=== PATIENT | female | born 1945 | race Caucasian/White ===

== ENCOUNTER → 2019-03-18 12:11 | Outpatient (CLI) | payer MEDICARE, SELFPAY ==
--- NOTE | 2019-03-18 | DI.CT.S_ITS ---
PROCEDURE: CT SINUS SCREEN WO CON INDICATIONS: SINUS HEADACHES TECHNIQUE: Noncontrast 3.0 mm axial images acquired from the frontal sinuses to the mid-sella, with coronal and sagittal reformats. For radiation dose reduction, the following was used: automated exposure control, adjustment of mA and/or kV according to patient size. COMPARISON: [facility], CT, HEAD WITHOUT CONTRAST, 08/04/2016, 8:24. [facility], CT, HEAD AND NECK ANGIO, 08/04/2016, 9:36. FINDINGS: Image quality: Excellent. Maxillary Sinuses: No bony remodeling or destruction. Mucous retention cyst in the left maxillary sinus. Ethmoid Air Cells: No bony remodeling or destruction. Partial opacification of posterior left ethmoid air cells. Sphenoid Sinuses: No bony remodeling or destruction. The left sphenoid sinus is opacified. There is mucosal thickening in the right sphenoid sinus. Frontal Sinuses: No bony remodeling or destruction. Sinuses are clear. Ostiomeatal Complexes: Ostiomeatal complexes are patent. No Myrna cells. Miscellaneous: Visualized intra-orbital contents are normal. No elizabeth bullosa or paradoxical turbinate curvature. No nasal septal deviation. There is carotid artery calcification consistent with atherosclerosis. IMPRESSION: 1. Bilateral sphenoid and left ethmoid and maxillary sinusitis. Dictated by: Sharda Duffy M.D. on 03/18/2019 at 12:51 Approved by: Sharda Duffy M.D. on 03/18/2019 at 12:58
== END ==
PROVIDERS: PCP Internal Medicine; Visit Provider Internal Medicine
DX: J32.8 Other chronic sinusitis (principal); R51 Headache
CPT/HCPCS: 70486

== ENCOUNTER → 2019-09-16 09:47 | Outpatient (CLI) | payer MEDICARE, SELFPAY ==
--- NOTE | 2019-09-16 | DI.US.S_ITS ---
PROCEDURE: US CAROTID DOPPLER BI INDICATIONS: CAROTID ATHEROSCLEROSIS FOUND ON CT TECHNIQUE: Color and pulse Doppler interrogation was performed of both carotid systems, with image documentation and velocity measurements. COMPARISON: None. FINDINGS: Stenosis calculations are based on SRU (Society of Radiologists in Ultrasound) criteria. Right side: Brachial blood pressure: 112/64 mm Hg. Common carotid artery peak systolic velocity: 58 cm/sec. Internal carotid artery peak systolic velocity: 90 cm/sec. Internal carotid artery end diastolic velocity: 31 cm/sec. External carotid artery peak systolic velocity: 95 cm/sec. ICA/CCA peak systolic ratio: 1.6. Servin scale imaging description: Soft plaques at the bifurcation Percent internal carotid artery stenosis: Less than 50%. Vertebral artery: Flow direction is antegrade. Left side: Brachial blood pressure: 103/65 mm Hg. Common carotid artery peak systolic velocity: 76 cm/sec. Internal carotid artery peak systolic velocity: 61 cm/sec. Internal carotid artery end diastolic velocity: 20 cm/sec. External carotid artery peak systolic velocity: 141 cm/sec. ICA/CCA peak systolic ratio: 0.8. Servin scale imaging description: Calcified plaques at the bifurcation Percent internal carotid artery stenosis: Less than 50%. Vertebral artery: Flow direction is antegrade. IMPRESSION: 1. Less than 50% internal carotid artery stenosis bilaterally. 2. Antegrade vertebral artery flow bilaterally. Dictated by: Sharda Duffy M.D. on 09/16/2019 at 12:13 Approved by: Sharda Duffy M.D. on 09/16/2019 at 12:15
== END ==
PROVIDERS: PCP Internal Medicine; Visit Provider Internal Medicine
DX: I65.23 Occlusion and stenosis of bilateral carotid arteries (principal)
CPT/HCPCS: 93880

== ENCOUNTER → 2020-04-15 09:08 | Outpatient (CLI) | payer MEDICARE, SELFPAY ==
[2020-04-15 10:07] LABS: Add Manual Diff / Slide Review NO; Basophils Absolute Auto 0 /uL (0-100); Basophils Percent Auto 0.7 % (0-2); Eosinophils Absolute Auto 200 /uL (0-450); Hematocrit 42.4 % (36-46); Hemoglobin 14.4 g/dL (12.0-16.0); Lymphocytes Absolute Auto 700 /uL (1100-4500); Lymphocytes Percent Auto 17.1 % (25-40); Mean Corpuscular HGB Conc 33.9 % (30-36); Mean Corpuscular Hemoglobin 28.9 PG (26-34); Mean Corpuscular Volume 85.3 fL (80-100); Monocytes Absolute Auto 500 /uL (0-900); Monocytes Percent Auto 11.8 % (3-14); Neutrophils Absolute Auto 2800 /uL (1500-7000); Neutrophils Percent Auto 66.4 % (50-75); Platelet Count 247 X10^3/uL (150-400); Red Blood Cell Count 4.97 X10^6/uL (4.0-5.2); Red Cell Distribution Width 14.4 % (11.6-14.8); White Blood Cell Count 4.1 X10^3/uL (4.5-11.0)
[2020-04-15 10:36] LABS: Alanine Aminotransferase 15 IU/L (<35); Albumin 3.9 g/dL (3.5-5.0); Albumin Globulin Ratio 1.3 (1.0-2.8); Alkaline Phosphatase 108 U/L (38-126); Aspartate Aminotransferase 29 IU/L (14-36); Blood Urea Nitrogen 17 mg/dL (7-17); Calcium 9.2 mg/dL (8.4-10.2); Carbon Dioxide 35 mmol/L (22-32); Chloride 100 mmol/L (98-107); Cholesterol 176 mg/dL (140-199); Estimated Glomerular Filt Rate > 60.0 mL/min (>60); Globulin 2.9 g/dL (1.7-4.1); Glucose 94 mg/dL (80-110); HDL Cholesterol 56 mg/dL (40-60); HEMOLYSIS < 15 (0-50); LDL Cholesterol Calculated 102 mg/dL (<100); Sodium 140 mmol/L (137-145); Total Protein 6.8 g/dL (6.3-8.2); Triglycerides 88 mg/dL (35-150)
[2020-04-15 10:37] LABS: Potassium 3.6 mmol/L (3.4-5.1)
[2020-04-15 11:09] LABS: Thyroid Stimulating Hormone 2.12 uIU/mL (0.47-4.68)
== END ==
PROVIDERS: PCP Internal Medicine; Referring Provider Internal Medicine; Visit Provider Internal Medicine
DX: I10 Essential (primary) hypertension (principal); E03.9 Hypothyroidism, unspecified; E78.5 Hyperlipidemia, unspecified
CPT/HCPCS: 36415; 80053; 80061; 84443; 85025

== ENCOUNTER → 2021-01-11 11:41 | Outpatient (CLI) | payer MEDICARE, SELFPAY | PROVIDERS: PCP Internal Medicine; Referring Provider Internal Medicine; Visit Provider Internal Medicine | DX: Z12.31 Encounter for screening mammogram for malignant neoplasm of breast (principal); Z53.9 Procedure and treatment not carried out, unspecified reason ==

== ENCOUNTER → 2021-06-01 08:29 | Outpatient (CLI) | payer MEDICARE, SELFPAY ==
--- NOTE | 2021-06-01 08:30 | DI.US.S_ITS ---
LIMITED ULTRASOUND OF LEFT BREAST: 06/01/2021 CLINICAL: Palpable left breast lump. Comparison is made to exams dated: 06/01/2021 mammogram, 03/02/2018 mammogram, 10/30/2012 mammogram, and 03/03/2010 mammogram - [facility]. Real-time ultrasound of the left breast was performed. Servin scale images of the real-time examination were reviewed. Dense fibroglandular tissue but no mass is identifed in the patient-indicated palpable area of concern. IMPRESSION: NEGATIVE Dense fibroglandular tissue but no mass is identifed in the patient-indicated palpable area of concern. Recommend clinical follow up. There is no sonographic evidence of malignancy. A 1 year screening mammogram is recommended. This exam was interpreted at Station ID: [id number]. Electronically Signed By: Devin akhtar:06/01/2021 10:37:27 letter sent: Clinical Evaluation Ultrasound BI-RADS: 1 Negative
--- NOTE | 2021-06-01 08:30 | DI.MG.S_ITS ---
BILATERAL DIGITAL DIAGNOSTIC MAMMOGRAM 3D/2D: 06/01/2021 CLINICAL: Left breast mass. Comparison is made to exams dated: 03/02/2018 mammogram, 10/30/2012 mammogram, and 03/03/2010 mammogram - [facility]. The tissue of both breasts is extremely dense, which lowers the sensitivity of mammography. No significant masses, calcifications, or other findings are seen in either breast. IMPRESSION: INCOMPLETE: NEEDS ADDITIONAL IMAGING EVALUATION There is no abnormality seen in the left breast to correspond with the palpable abnormality in the upper outer quadrant. Targeted ultrasound is recommended for further evaluation, which will be scheduled immediately following this exam. This exam was interpreted at Station ID: [id number]. NOTE: For mammograms, a report in lay terms will be sent to the patient. Approximately 15% of breast malignancies will not be visualized mammographically. In the management of a palpable breast mass, a negative mammogram must not discourage biopsy of a clinically suspicious lesion. Electronically Signed By: Devin [email or web address]/[email or web address]:06/01/2021 10:32:25 ACR BI-RADS Category 0: Incomplete [id number]
== END ==
PROVIDERS: PCP Internal Medicine; Referring Provider Internal Medicine; Visit Provider Internal Medicine
DX: N63.21 Unspecified lump in the left breast, upper outer quadrant (principal); R92.2 Inconclusive mammogram
CPT/HCPCS: 76642; 77066; G0279

== ENCOUNTER 2021-07-15 12:00 | Outpatient (RCR) | payer MEDICARE, SELFPAY ==
--- NOTE | 2021-06-01 15:15 | PT.OPPOC ---
Physical, Occupational & Speech Therapy At [facility] Current Diagnoses Stiffness of other specified joint, not elsewhere classified (06/01/21) Low back pain (06/01/21) Pain in thoracic spine (06/01/21) Muscle spasm of back (06/01/21) Abnormal posture (06/01/21) Visit Care Team Role Provider Type RO Cleaning Attending Provider Advanced Centerless Grinder Operator Primary Care Provider Referring Provider Specialty: [facility] Address: [address] [place] [address], [facility] Email: Plan Of Care PT-OP-T Assessment and Plan Start: 06/01/21 15:09 Freq: Status: Active Protocol: Document 06/01/21 14:30 DCW (Rec: 06/02/21 09:38 DCW [id number]) Physical Therapy Assessment Rehab Potential Rehabilitation Potential Good Evaluation Complexity Number of Personal Factors/Comorbidities 1-2 Number of Body Systems Impaired 3 Clinical Presentation at Evaluation Stable Impairments Impairments Activity Tolerance,Functional Activities,Functional Mobility ,Pain,Posture,ROM,Soft Tissue Mobility,Strength,Tone Goals Three Impairment Pt has severe tone along right QL, paraspinals Fdc Goal (LTG) Pt presents with tone reduced to mild, resulting in decreased scoliotic curvature and evened out shoulder height LTG Duration 08/02/21 Two Impairment Pt unable to to any activity longer than 20 minutes due to back pain 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 LTG Duration 08/02/21 One Impairment Pt does not have an appropriate home exercise program Short Term Goal (STG) Pt to be independent and compliant with an appropriate HEP STG Duration 07/02/21 Assessment Summary Assessment Pt presents with increased thoracolumbar tone, especially along her right QL and paraspinals, which has created a slight scoliotic curvature, increased thoracic kyphosis, decreased spinal mobility, and overall discomfort. Pt also has significant core weakness, which likely causes increased activation and irritation of her back musculature when helping to get her daughter's wheelchair in and out of the car. Pt should benefit from core strengthening, flexibility, STM, joint mobilization, posture training , and pain-control modalities. Physical Therapy Plan Frequency and Duration Frequency of Treatment 2x/Week Duration of Treatment Two months Plan of Care Start Date 06/01/21 Plan of Care End Date 08/02/21 Therapeutic Interventions Therapeutic Interventions Home Exercise Program,Joint Mobilizations,Manual Therapy, Patient/Caregiver Education, Self-Care/Home Management,Soft Tissue Mobilization,Taping, Therapeutic Activities, Therapeutic Exercises Modalities Cold Pack/Ice Massage,Electric Stimulation,Hot Packs, Ultrasound Next Visit Focus/Plan Next Note Type Treatment Note Plan of Care Dates Plan of Care Start Date 06/01/21 Plan of Care End Date 08/02/21 Electronically Signed by: Ramiro Merchant, PT 06/02/21 0946 Please Sign and Return: I have reviewed this Plan of Care and certify that the skilled therapy services above are required to meet the patient?s needs. Physician Signature Date Printed Name and Credentials Clinical Instructor Signature Printed Name and Credentials
--- NOTE | 2021-06-01 15:15 | PT.OIE ---
Current Diagnoses Stiffness of other specified joint, not elsewhere classified (06/01/21) Low back pain (06/01/21) Pain in thoracic spine (06/01/21) Muscle spasm of back (06/01/21) Abnormal posture (06/01/21) Past Surgical History Status post cholecystectomy Visit Care Team Role Provider Type RO Cleaning Attending Provider Advanced Cart Driver Primary Care Provider Referring Provider Specialty: Family Practice Address: [address] [place] [address], [facility] [place], [facility] Email: [email or web address] Physical Therapy Initial Evaluation PT-OP-A Visit Information Start: 06/01/21 15:09 Freq: Status: Active Protocol: Document 06/01/21 14:30 DCW (Rec: 06/01/21 15:10 DCW [id number]) Out-Patient Physical Therapy Visit Information Visit Information Visit Type Initial Evaluation Visit Start Time 14:30 Visit Stop Time 15:10 Total Visit Minutes 40 Visit Number 1 Number of PARTY BUS DRIVER Visits 0 Evaluation Information Evaluation Date 06/01/21 PT-OP-B Current Condition Start: 06/01/21 15:09 Freq: Status: Active Protocol: Document 06/01/21 14:30 DCW (Rec: 06/01/21 17:51 DCW [id number]) Current Condition History of Current Condition Onset Date 40+ year history Current Complaints Mid-low back pain History of Current Condition Pt is a 76 year old female presenting with a 40+ year history of low back problems, reporting an 8 month history of worsening pain a little higher than my usual pain, along the upper lumbar spine and lower thoracic, right > left. Pt notes her initial injury occurred when she was in her 30s, when she tripped and fell on a sidewalk. Reports at the time, she was having fairly severe pain for ~1 year, and was finally assessed correctly and had a surgery performed, admits it hasn't really been a problem since, other than occasional episodes of general back pain and some sciatic pain every now and then. Recently, however , she has had worsening instances of pain in her back. Notes that typically she is able to do any activity, but can only tolerating in for about 20 minutes before she needs to stop and rest and change positions to relieve some pain. Additionally, pt notes that her daughter has MS , and that she frequently has to put the wheelchair in and take it out of the car for her daughter, which she acknowledges may be at least partially to blame for some of her back pain. PT-OP-C Subjective Start: 06/01/21 15:09 Freq: Status: Active Protocol: Document 06/01/21 14:30 DCW (Rec: 06/01/21 17:51 DCW [id number]) OP-PT Subjective Patient Comments Patient Comments I can do a little bit of anything, but after a while it really hurts, and I need to stop and move around to get it to loosen up. Patient Reported Progress Worse Patient Questionnaires Oswestry Low Back Index Oswestry Score 13/50 = 26% Oswestry Impairment 20 to 39% Impaired (Score 20- 39) OP-PT Pain Assessment Pain Assessment Grid Paper Pain Assessment Grid Completed Yes Location Bilateral Lower Back Intensity 4 Scale Used Numeric (0 - 10) PT-OP-F Manual Assessment Start: 06/01/21 15:09 Freq: Status: Active Protocol: Document 06/01/21 14:30 DCW (Rec: 06/01/21 17:51 DCW [id number]) Manual Assessments Soft Tissue Assessment Soft Tissue Mobility Assessment Severe tone right QL, right thoracic and lumbar paraspinals Joint Mobility Assessment Joint Mobility Assessment Hypomobility throughout thoracic and lumbar spine PT-OP-J Posture/Palpation/Skin Start: 06/01/21 15:09 Freq: Status: Active Protocol: Document 06/01/21 14:30 DCW (Rec: 06/01/21 17:51 DCW [id number]) Posture Evaluation Position Standing Evaluation View Posterior Head/C-Spine Posture Side Bent Left T-Spine Posture Flexible Scoliosis on (R), Increased Kyphosis Scapula Posture (L) Elevated,(R) Depressed PT-OP-K Range of Motion Start: 06/01/21 15:09 Freq: Status: Active Protocol: Document 06/01/21 14:30 DCW (Rec: 06/01/21 17:51 DCW [id number]) Lumbar Spine Range of Motion Lumbar Spine Active Degrees Testing Position Standing Flexion 40 Extension 10 Lateral Flexion Left 58 Lateral Flexion Right 53 ROM Limitations Soft Tissue Tightness,Muscle Tone Comments Lateral flexion measured in cm from fingertips to floor PT-OP-L Special Tests Start: 06/01/21 15:09 Freq: Status: Active Protocol: Document 06/01/21 14:30 DCW (Rec: 06/01/21 17:51 DCW [id number]) Special Tests Lumbar Spine Special Tests Vertical Spine Loading Test Results Negative Slump Test Results Negative Compression Test Results Negative PT-OP-M Strength Start: 06/01/21 17:51 Freq: Status: Active Protocol: Document 06/01/21 14:30 DCW (Rec: 06/01/21 17:52 DCW [id number]) Trunk Strength Trunk Manual Muscle Testing Testing Position Supine Core Stabilization TrA MMT - 3-/5. Pt struggles to properly contract TrA, requires verbal and tactile cues, still very inconsistent. PT-OP-Q Treatments Start: 06/01/21 15:09 Freq: Status: Active Protocol: Document 06/01/21 14:30 DCW (Rec: 06/01/21 15:11 DCW [id number]) Therapeutic Exercises Supine Exercises 1 Supine Exercise Name PPT /c TrA contraction Comments Verbal and tactile cues for TrA contraction Sitting Exercises 1 Sitting Exercise Name Lateral trunk flexion Side bilateral Reps/Minutes 30 hold PT-OP-T Assessment and Plan Start: 06/01/21 15:09 Freq: Status: Active Protocol: Document 06/01/21 14:30 DCW (Rec: 06/02/21 09:38 DCW [id number]) Physical Therapy Assessment Rehab Potential Rehabilitation Potential Good Evaluation Complexity Number of Personal Factors/Comorbidities 1-2 Number of Body Systems Impaired 3 Clinical Presentation at Evaluation Stable Impairments Impairments Activity Tolerance,Functional Activities,Functional Mobility ,Pain,Posture,ROM,Soft Tissue Mobility,Strength,Tone Goals Three Impairment Pt has severe tone along right QL, paraspinals Senior Living Goal (LTG) Pt presents with tone reduced to mild, resulting in decreased scoliotic curvature and evened out shoulder height LTG Duration 08/02/21 Two Impairment Pt unable to to any activity longer than 20 minutes due to back pain Diesel Bus Mechanic Goal (LTG) Pt to demonstrate ability to stand at sink for 40 minutes without increased back pain to allow for 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 LTG Duration 08/02/21 One Impairment Pt does not have an appropriate home exercise program Short Term Goal (STG) Pt to be independent and compliant with an appropriate HEP STG Duration 07/02/21 Assessment Summary Assessment Pt presents with increased thoracolumbar tone, especially along her right QL and paraspinals, which has created a slight scoliotic curvature, increased thoracic kyphosis, decreased spinal mobility, and overall discomfort. Pt also has significant core weakness, which likely causes increased activation and irritation of her back musculature when helping to get her daughter's wheelchair in and out of the car. Pt should benefit from core strengthening, flexibility, STM, joint mobilization, posture training , and pain-control modalities. Physical Therapy Plan Frequency and Duration Frequency of Treatment 2x/Week Duration of Treatment Two months Plan of Care Start Date 06/01/21 Plan of Care End Date 08/02/21 Therapeutic Interventions Therapeutic Interventions Home Exercise Program,Joint Mobilizations,Manual Therapy, Patient/Caregiver Education, Self-Care/Home Management,Soft Tissue Mobilization,Taping, Therapeutic Activities, Therapeutic Exercises Modalities Cold Pack/Ice Massage,Electric Stimulation,Hot Packs, Ultrasound Next Visit Focus/Plan Next Note Type Treatment Note
--- NOTE | 2021-06-02 09:39 | PT.OPPOC ---
Physical, Occupational & Speech Therapy At [facility] Current Diagnoses Stiffness of other specified joint, not elsewhere classified (06/01/21) Low back pain (06/01/21) Pain in thoracic spine (06/01/21) Muscle spasm of back (06/01/21) Abnormal posture (06/01/21) Visit Care Team Role Provider Type RO Cleaning Attending Provider Advanced Hydraulic Jack Mechanic Primary Care Provider Referring Provider Specialty: [facility] Address: [address] [place] [address], [facility] Email: Plan Of Care PT-OP-T Assessment and Plan Start: 06/01/21 15:09 Freq: Status: Active Protocol: Document 06/01/21 14:30 DCW (Rec: 06/02/21 09:38 DCW [id number]) Physical Therapy Assessment Rehab Potential Rehabilitation Potential Good Evaluation Complexity Number of Personal Factors/Comorbidities 1-2 Number of Body Systems Impaired 3 Clinical Presentation at Evaluation Stable Impairments Impairments Activity Tolerance,Functional Activities,Functional Mobility ,Pain,Posture,ROM,Soft Tissue Mobility,Strength,Tone Goals Three Impairment Pt has severe tone along right QL, paraspinals Senior Living Goal (LTG) Pt presents with tone reduced to mild, resulting in decreased scoliotic curvature and evened out shoulder height LTG Duration 08/02/21 Two Impairment Pt unable to to any activity longer than 20 minutes due to back pain Christmas Tree Farmer Goal (LTG) Pt to demonstrate ability to stand at sink for 40 minutes without increased back pain to allow for 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 LTG Duration 08/02/21 One Impairment Pt does not have an appropriate home exercise program Short Term Goal (STG) Pt to be independent and compliant with an appropriate HEP STG Duration 07/02/21 Assessment Summary Assessment Pt presents with increased thoracolumbar tone, especially along her right QL and paraspinals, which has created a slight scoliotic curvature, increased thoracic kyphosis, decreased spinal mobility, and overall discomfort. Pt also has significant core weakness, which likely causes increased activation and irritation of her back musculature when helping to get her daughter's wheelchair in and out of the car. Pt should benefit from core strengthening, flexibility, STM, joint mobilization, posture training , and pain-control modalities. Physical Therapy Plan Frequency and Duration Frequency of Treatment 2x/Week Duration of Treatment Two months Plan of Care Start Date 06/01/21 Plan of Care End Date 08/02/21 Therapeutic Interventions Therapeutic Interventions Home Exercise Program,Joint Mobilizations,Manual Therapy, Patient/Caregiver Education, Self-Care/Home Management,Soft Tissue Mobilization,Taping, Therapeutic Activities, Therapeutic Exercises Modalities Cold Pack/Ice Massage,Electric Stimulation,Hot Packs, Ultrasound Next Visit Focus/Plan Next Note Type Treatment Note Plan of Care Dates Plan of Care Start Date 06/01/21 Plan of Care End Date 08/02/21 Electronically Signed by: Ramiro Merchant, PT 06/02/21 0926 Please Sign and Return: I have reviewed this Plan of Care and certify that the skilled therapy services above are required to meet the patient?s needs. Physician Signature Date Printed Name and Credentials Clinical Instructor Signature Printed Name and Credentials
--- NOTE | 2021-06-06 12:48 | PT.OTN ---
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 Pt notes her initial injury occurred when she was in her 30s, when she tripped and fell on a sidewalk. Reports at the time, she was having fairly severe pain for ~1 year, and was finally assessed correctly and had a surgery performed, admits it hasn't really been a problem since, other than occasional episodes of general back pain and some sciatic pain every now and then. Recently, however, she has had worsening instances of pain in her back . Notes that typically she is able to do any activity, but can only tolerating in for about 20 minutes before she needs to stop and rest and change positions to relieve some pain. Additionally, pt notes that her daughter has MS , and that she frequently has to put the wheelchair in and take it out of the car for her daughter, which she acknowledges may be at least partially to blame for some of her back pain. PT-OP-C Subjective Start: 06/01/21 15:09 Freq: Status: Active Protocol: Document 06/06/21 12:00 DCW (Rec: 06/06/21 12:48 DCW [id number]) OP-PT Subjective Patient Comments Patient Comments Pt reports I don't feel any worse than I had been. PT-OP-F Manual Assessment Start: 06/01/21 15:09 Freq: Status: Active Protocol: Document 06/01/21 14:30 DCW (Rec: 06/01/21 17:51 DCW [id number]) Manual Assessments Soft Tissue Assessment Soft Tissue Mobility Assessment Severe tone right QL, right thoracic and lumbar paraspinals Joint Mobility Assessment Joint Mobility Assessment Hypomobility throughout thoracic and lumbar spine PT-OP-J Posture/Palpation/Skin Start: 06/01/21 15:09 Freq: Status: Active Protocol: Document 06/01/21 14:30 DCW (Rec: 06/01/21 17:51 DCW [id number]) Posture Evaluation Position Standing Evaluation View Posterior Head/C-Spine Posture Side Bent Left T-Spine Posture Flexible Scoliosis on (R), Increased Kyphosis Scapula Posture (L) Elevated,(R) Depressed PT-OP-K Range of Motion Start: 06/01/21 15:09 Freq: Status: Active Protocol: Document 06/01/21 14:30 DCW (Rec: 06/01/21 17:51 DCW [id number]) Lumbar Spine Range of Motion Lumbar Spine Active Degrees Testing Position Standing Flexion 40 Extension 10 Lateral Flexion Left 58 Lateral Flexion Right 53 ROM Limitations Soft Tissue Tightness,Muscle Tone Comments Lateral flexion measured in cm from fingertips to floor PT-OP-L Special Tests Start: 06/01/21 15:09 Freq: Status: Active Protocol: Document 06/01/21 14:30 DCW (Rec: 06/01/21 17:51 DCW [id number]) Special Tests Lumbar Spine Special Tests Vertical Spine Loading Test Results Negative Slump Test Results Negative Compression Test Results Negative PT-OP-M Strength Start: 06/01/21 17:51 Freq: Status: Active Protocol: Document 06/01/21 14:30 DCW (Rec: 06/01/21 17:52 DCW [id number]) Trunk Strength Trunk Manual Muscle Testing Testing Position Supine Core Stabilization TrA MMT - 3-/5. Pt struggles to properly contract TrA, requires verbal and tactile cues, still very inconsistent. PT-OP-Q Treatments Start: 06/01/21 15:09 Freq: Status: Active Protocol: Document 06/06/21 12:00 DCW (Rec: 06/06/21 12:47 DCW [id number]) Gym Equipment Cable Column (Body Solid) Pallof Press Resistance 10# Therapeutic Ball 3 Exercise Details Trunk rotations vs resistance Ball Size/Color Red - 55 cm Lv 2 T-band 2 Exercise Details Pelvic tilts, circles Ball Size/Color Red - 55 cm Body Position Sitting 1 Exercise Details Low Trunk Rotations Ball Size/Color Blue - 45 cm Body Position Supine Therapeutic Exercises Supine Exercises 2 Supine Exercise Name PPT /c Marching 1 Supine Exercise Name PPT /c TrA contraction Sitting Exercises 2 Sitting Exercise Name Forward lumbar flexion Manual Therapy Treatment Soft Tissue Mobilization 1 Body Location R T/L Paraspinals, QL Mobilization Type Sustained Pressure,Trigger Point Release Intensity/Depth Moderate Body Position Sidelying Manual Traction 1 Details Inferior traction of R iliac crest PT-OP-T Assessment and Plan Start: 06/01/21 15:09 Freq: Status: Active Protocol: Document 06/06/21 12:00 DCW (Rec: 06/06/21 12:47 DCW [id number]) Physical Therapy Assessment Impairments Impairments Activity Tolerance,Functional Activities,Functional Mobility ,Pain,Posture,ROM,Soft Tissue Mobility,Strength,Tone Goals Three Impairment Pt has severe tone along right QL, paraspinals Longterm Goal (LTG) Pt presents with tone reduced to mild, resulting in decreased scoliotic curvature and evened out shoulder height LTG Duration 08/02/21 Two Impairment Pt unable to to any activity longer than 20 minutes due to back pain Technical Training Manager Goal (LTG) Pt to demonstrate ability to stand at sink for 40 minutes without increased back pain to allow for 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 LTG Duration 08/02/21 One Impairment Pt does not have an appropriate home exercise program Short Term Goal (STG) Pt to be independent and compliant with an appropriate HEP STG Duration 07/02/21 Assessment Summary Assessment Pt tolerated treatment well, had some mild discomfort with STM, but stated she felt looser afterward. Pt had some difficulty performing segmental movement of hips/ pelvis, tends to fully activate entire spine and move everything together.even with verbal and visual cues. Physical Therapy Plan Frequency and Duration Frequency of Treatment 2x/Week Duration of Treatment Two months Plan of Care Start Date 06/01/21 Plan of Care End Date 08/02/21 Therapeutic Interventions Therapeutic Interventions Home Exercise Program,Joint Mobilizations,Manual Therapy, Patient/Caregiver Education, Self-Care/Home Management,Soft Tissue Mobilization,Taping, Therapeutic Activities, Therapeutic Exercises Modalities Cold Pack/Ice Massage,Electric Stimulation,Hot Packs, Ultrasound Next Visit Focus/Plan Next Note Type Treatment Note Next Visit Plan STM, Flexibility, Lumbar mobility
--- NOTE | 2021-06-08 09:46 | PT.OTN ---
Current Diagnoses Stiffness of other specified joint, not elsewhere classified (06/08/21) Low back pain (06/08/21) Pain in thoracic spine (06/08/21) Muscle spasm of back (06/08/21) Abnormal posture (06/08/21) Physical Therapy Treatment Note PT-OP-A Visit Information Start: 06/01/21 15:09 Freq: Status: Active Protocol: Document 06/08/21 09:38 OF (Rec: 06/08/21 09:46 OF [id number]) Out-Patient Physical Therapy Visit Information Visit Information Visit Type Treatment Note Visit Start Time 09:00 Visit Stop Time 09:38 Total Visit Minutes 38 Visit Number 3 Evaluation Information Evaluation Date 06/01/21 PT-OP-B Current Condition Start: 06/01/21 15:09 Freq: Status: Active Protocol: Document 06/01/21 14:30 DCW (Rec: 06/01/21 17:51 DCW [id number]) Current Condition History of Current Condition Onset Date 40+ year history Current Complaints Mid-low back pain History of Current Condition Pt is a 76 year old female presenting with a 40+ year history of low back problems, reporting an 8 month history of worsening pain a little higher than my usual pain, along the upper lumbar spine and lower thoracic, right > left. Pt notes her initial injury occurred when she was in her 30s, when she tripped and fell on a sidewalk. Reports at the time, she was having fairly severe pain for ~1 year, and was finally assessed correctly and had a surgery performed, admits it hasn't really been a problem since, other than occasional episodes of general back pain and some sciatic pain every now and then. Recently, however, she has had worsening instances of pain in her back . Notes that typically she is able to do any activity, but can only tolerating in for about 20 minutes before she needs to stop and rest and change positions to relieve some pain. Additionally, pt notes that her daughter has MS , and that she frequently has to put the wheelchair in and take it out of the car for her daughter, which she acknowledges may be at least partially to blame for some of her back pain. PT-OP-C Subjective Start: 06/01/21 15:09 Freq: Status: Active Protocol: Document 06/08/21 09:38 OF (Rec: 06/08/21 09:46 OF [id number]) OP-PT Subjective Patient Comments Patient Comments pt states she was sore in abdominals after last tx Patient Reported Progress Improving OP-PT Pain Assessment Pain Assessment Grid Paper Pain Assessment Grid Completed No: pt denies pain Home Pain Medication Use Pain Medications Used No PT-OP-F Manual Assessment Start: 06/01/21 15:09 Freq: Status: Active Protocol: Document 06/01/21 14:30 DCW (Rec: 06/01/21 17:51 DCW [id number]) Manual Assessments Soft Tissue Assessment Soft Tissue Mobility Assessment Severe tone right QL, right thoracic and lumbar paraspinals Joint Mobility Assessment Joint Mobility Assessment Hypomobility throughout thoracic and lumbar spine PT-OP-J Posture/Palpation/Skin Start: 06/01/21 15:09 Freq: Status: Active Protocol: Document 06/01/21 14:30 DCW (Rec: 06/01/21 17:51 DCW [id number]) Posture Evaluation Position Standing Evaluation View Posterior Head/C-Spine Posture Side Bent Left T-Spine Posture Flexible Scoliosis on (R), Increased Kyphosis Scapula Posture (L) Elevated,(R) Depressed PT-OP-K Range of Motion Start: 06/01/21 15:09 Freq: Status: Active Protocol: Document 06/01/21 14:30 DCW (Rec: 06/01/21 17:51 DCW [id number]) Lumbar Spine Range of Motion Lumbar Spine Active Degrees Testing Position Standing Flexion 40 Extension 10 Lateral Flexion Left 58 Lateral Flexion Right 53 ROM Limitations Soft Tissue Tightness,Muscle Tone Comments Lateral flexion measured in cm from fingertips to floor PT-OP-L Special Tests Start: 06/01/21 15:09 Freq: Status: Active Protocol: Document 06/01/21 14:30 DCW (Rec: 06/01/21 17:51 DCW [id number]) Special Tests Lumbar Spine Special Tests Vertical Spine Loading Test Results Negative Slump Test Results Negative Compression Test Results Negative PT-OP-M Strength Start: 06/01/21 17:51 Freq: Status: Active Protocol: Document 06/01/21 14:30 DCW (Rec: 06/01/21 17:52 DCW [id number]) Trunk Strength Trunk Manual Muscle Testing Testing Position Supine Core Stabilization TrA MMT - 3-/5. Pt struggles to properly contract TrA, requires verbal and tactile cues, still very inconsistent. PT-OP-Q Treatments Start: 06/01/21 15:09 Freq: Status: Active Protocol: Document 06/08/21 09:38 OF (Rec: 06/08/21 09:46 OF [id number]) Gym Equipment Therapeutic Ball 3 Exercise Details Trunk rotations vs resistance Ball Size/Color Red - 55 cm Lv 2 T-band Body Position Sitting Reps/Duration 2x10 2 Exercise Details Pelvic tilts, circles Ball Size/Color Red - 55 cm Body Position Sitting Comments cues for post pelvic tilt Therapeutic Exercises Supine Exercises bridges Side bilateral Reps/Minutes 2x10 Comments heels on mat for post chain recruitment 2 Supine Exercise Name PPT /c Marching Comments [id number] 1 Supine Exercise Name PPT /c TrA contraction Reps/Minutes [id number] Manual Therapy Treatment Soft Tissue Mobilization 1 Body Location R T/L Paraspinals, QL Mobilization Type Sustained Pressure,Trigger Point Release Intensity/Depth Moderate Body Position Sidelying Manual Traction 1 Details Inferior traction of R iliac crest Body Position Sidelying Comments 3x1min Self-Care/Home Management Treatment Education Patient Education Home Exercise Program PT-OP-T Assessment and Plan Start: 06/01/21 15:09 Freq: Status: Active Protocol: Document 06/08/21 09:38 OF (Rec: 06/08/21 09:46 OF [id number]) Physical Therapy Assessment Rehab Potential Rehabilitation Potential Excellent Evaluation Complexity Number of Personal Factors/Comorbidities 1-2 Number of Body Systems Impaired 1-2 Clinical Presentation at Evaluation Stable Impairments Impairments Activity Tolerance,Strength Goals Three Impairment Pt has severe tone along right QL, paraspinals Fdc Goal (LTG) Pt presents with tone reduced to mild, resulting in decreased scoliotic curvature and evened out shoulder height LTG Duration 08/02/21 Two Impairment Pt unable to to any activity longer than 20 minutes due to back pain Director Of Informatics Goal (LTG) Pt to demonstrate ability to stand at sink for 40 minutes without increased back pain to allow for 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 LTG Duration 08/02/21 One Impairment Pt does not have an appropriate home exercise program Short Term Goal (STG) Pt to be independent and compliant with an appropriate HEP STG Duration 07/02/21 Progress Towards Goals Progress Towards Goals Progressing Toward Goals Assessment Summary Assessment Gilma reports feeling better today, she has performed her HEP as instructed and had only muscle soreness after last tx , lasting 24hrs. She performs new exercise with good postural control Physical Therapy Plan Frequency and Duration Frequency of Treatment 2x/Week Duration of Treatment Two months Plan of Care Start Date 06/01/21 Plan of Care End Date 08/02/21 Next Visit Focus/Plan Next Note Type Treatment Note Next Visit Plan STM, Flexibility, Lumbar mobility. Assess response to bridges, trunk rotations
--- NOTE | 2021-06-15 12:44 | PT.OTN ---
Current Diagnoses Stiffness of other specified joint, not elsewhere classified (06/15/21) Low back pain (06/15/21) Pain in thoracic spine (06/15/21) Muscle spasm of back (06/15/21) Abnormal posture (06/15/21) Physical Therapy Treatment Note PT-OP-A Visit Information Start: 06/01/21 15:09 Freq: Status: Active Protocol: Document 06/15/21 12:00 DCW (Rec: 06/15/21 12:44 DCW [id number]) Out-Patient Physical Therapy Visit Information Visit Information Visit Type Treatment Note Visit Start Time 12:00 Visit Stop Time 12:45 Total Visit Minutes 45 Visit Number 4 Number of COPPER PLATER Visits 0 Evaluation Information Evaluation Date 06/01/21 PT-OP-B Current Condition Start: 06/01/21 15:09 Freq: Status: Active Protocol: Document 06/01/21 14:30 DCW (Rec: 06/01/21 17:51 DCW [id number]) Current Condition History of Current Condition Onset Date 40+ year history Current Complaints Mid-low back pain History of Current Condition Pt is a 76 year old female presenting with a 40+ year history of low back problems, reporting an 8 month history of worsening pain a little higher than my usual pain, along the upper lumbar spine and lower thoracic, right > left. Pt notes her initial injury occurred when she was in her 30s, when she tripped and fell on a sidewalk. Reports at the time, she was having fairly severe pain for ~1 year, and was finally assessed correctly and had a surgery performed, admits it hasn't really been a problem since, other than occasional episodes of general back pain and some sciatic pain every now and then. Recently, however, she has had worsening instances of pain in her back . Notes that typically she is able to do any activity, but can only tolerating in for about 20 minutes before she needs to stop and rest and change positions to relieve some pain. Additionally, pt notes that her daughter has MS , and that she frequently has to put the wheelchair in and take it out of the car for her daughter, which she acknowledges may be at least partially to blame for some of her back pain. PT-OP-C Subjective Start: 06/01/21 15:09 Freq: Status: Active Protocol: Document 06/15/21 12:00 DCW (Rec: 06/15/21 12:44 DCW [id number]) OP-PT Subjective Patient Comments Patient Comments I don't think there have been any big changes. PT-OP-F Manual Assessment Start: 06/01/21 15:09 Freq: Status: Active Protocol: Document 06/01/21 14:30 DCW (Rec: 06/01/21 17:51 DCW [id number]) Manual Assessments Soft Tissue Assessment Soft Tissue Mobility Assessment Severe tone right QL, right thoracic and lumbar paraspinals Joint Mobility Assessment Joint Mobility Assessment Hypomobility throughout thoracic and lumbar spine PT-OP-J Posture/Palpation/Skin Start: 06/01/21 15:09 Freq: Status: Active Protocol: Document 06/01/21 14:30 DCW (Rec: 06/01/21 17:51 DCW [id number]) Posture Evaluation Position Standing Evaluation View Posterior Head/C-Spine Posture Side Bent Left T-Spine Posture Flexible Scoliosis on (R), Increased Kyphosis Scapula Posture (L) Elevated,(R) Depressed PT-OP-K Range of Motion Start: 06/01/21 15:09 Freq: Status: Active Protocol: Document 06/01/21 14:30 DCW (Rec: 06/01/21 17:51 DCW [id number]) Lumbar Spine Range of Motion Lumbar Spine Active Degrees Testing Position Standing Flexion 40 Extension 10 Lateral Flexion Left 58 Lateral Flexion Right 53 ROM Limitations Soft Tissue Tightness,Muscle Tone Comments Lateral flexion measured in cm from fingertips to floor PT-OP-L Special Tests Start: 06/01/21 15:09 Freq: Status: Active Protocol: Document 06/01/21 14:30 DCW (Rec: 06/01/21 17:51 DCW [id number]) Special Tests Lumbar Spine Special Tests Vertical Spine Loading Test Results Negative Slump Test Results Negative Compression Test Results Negative PT-OP-M Strength Start: 06/01/21 17:51 Freq: Status: Active Protocol: Document 06/01/21 14:30 DCW (Rec: 06/01/21 17:52 DCW [id number]) Trunk Strength Trunk Manual Muscle Testing Testing Position Supine Core Stabilization TrA MMT - 3-/5. Pt struggles to properly contract TrA, requires verbal and tactile cues, still very inconsistent. PT-OP-Q Treatments Start: 06/01/21 15:09 Freq: Status: Active Protocol: Document 06/15/21 12:00 DCW (Rec: 06/15/21 12:44 DCW [id number]) Gym Equipment Cable Column (Body Solid) Pallof Press Resistance 10# Therapeutic Ball 3 Exercise Details Trunk rotations vs resistance Ball Size/Color Red - 55 cm Lv 2 T-band 2 Exercise Details Pelvic tilts, circles Ball Size/Color Red - 55 cm Body Position Sitting 1 Exercise Details Low Trunk Rotations Ball Size/Color Blue - 45 cm Body Position Supine Therapeutic Exercises Supine Exercises bridges Side bilateral Reps/Minutes 2x10 Comments heels on mat for post chain recruitment Manual Therapy Treatment Soft Tissue Mobilization 1 Body Location R T/L Paraspinals, QL Mobilization Type Sustained Pressure,Trigger Point Release Intensity/Depth Moderate Body Position Sidelying Manual Traction 1 Details Inferior traction of R iliac crest Body Position Sidelying PT-OP-T Assessment and Plan Start: 06/01/21 15:09 Freq: Status: Active Protocol: Document 06/15/21 12:00 DCW (Rec: 06/15/21 12:44 DCW [id number]) Physical Therapy Assessment Impairments Impairments Activity Tolerance,Functional Activities,Functional Mobility ,Pain,Posture,ROM,Soft Tissue Mobility,Strength,Tone Goals Three Impairment Pt has severe tone along right QL, paraspinals [employer] Attendant Goal (LTG) Pt presents with tone reduced to mild, resulting in decreased scoliotic curvature and evened out shoulder height LTG Duration 08/02/21 Two Impairment Pt unable to to any activity longer than 20 minutes due to back pain [employer] Attendant Goal (LTG) Pt to demonstrate ability to stand at sink for 40 minutes without increased back pain to allow for 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 LTG Duration 08/02/21 One Impairment Pt does not have an appropriate home exercise program Short Term Goal (STG) Pt to be independent and compliant with an appropriate HEP STG Duration 07/02/21 Assessment Summary Assessment Pt showing some improvement with muscle tone, does note that she typically feels better overall, but still requires rest breaks after doing any activity too long due to back pain and stiffness . Physical Therapy Plan Frequency and Duration Frequency of Treatment 2x/Week Duration of Treatment Two months Plan of Care Start Date 06/01/21 Plan of Care End Date 08/02/21 Therapeutic Interventions Therapeutic Interventions Home Exercise Program,Joint Mobilizations,Manual Therapy, Patient/Caregiver Education, Self-Care/Home Management,Soft Tissue Mobilization,Taping, Therapeutic Activities, Therapeutic Exercises Modalities Cold Pack/Ice Massage,Electric Stimulation,Hot Packs, Ultrasound Next Visit Focus/Plan Next Note Type Treatment Note Next Visit Plan STM, Flexibility, Lumbar mobility
--- NOTE | 2021-06-22 17:33 | PT.OTN ---
Current Diagnoses Stiffness of other specified joint, not elsewhere classified (06/22/21) Low back pain (06/22/21) Pain in thoracic spine (06/22/21) Muscle spasm of back (06/22/21) Abnormal posture (06/22/21) Physical Therapy Treatment Note PT-OP-A Visit Information Start: 06/01/21 15:09 Freq: Status: Active Protocol: Document 06/22/21 16:45 DCW (Rec: 06/22/21 17:33 DCW [id number]) Out-Patient Physical Therapy Visit Information Visit Information Visit Type Treatment Note Visit Start Time 16:45 Visit Stop Time 17:30 Total Visit Minutes 45 Visit Number 5 Number of RN CASE MGR Visits 0 Evaluation Information Evaluation Date 06/01/21 PT-OP-B Current Condition Start: 06/01/21 15:09 Freq: Status: Active Protocol: Document 06/01/21 14:30 DCW (Rec: 06/01/21 17:51 DCW [id number]) Current Condition History of Current Condition Onset Date 40+ year history Current Complaints Mid-low back pain History of Current Condition Pt is a 76 year old female presenting with a 40+ year history of low back problems, reporting an 8 month history of worsening pain a little higher than my usual pain, along the upper lumbar spine and lower thoracic, right > left. Pt notes her initial injury occurred when she was in her 30s, when she tripped and fell on a sidewalk. Reports at the time, she was having fairly severe pain for ~1 year, and was finally assessed correctly and had a surgery performed, admits it hasn't really been a problem since, other than occasional episodes of general back pain and some sciatic pain every now and then. Recently, however, she has had worsening instances of pain in her back . Notes that typically she is able to do any activity, but can only tolerating in for about 20 minutes before she needs to stop and rest and change positions to relieve some pain. Additionally, pt notes that her daughter has MS , and that she frequently has to put the wheelchair in and take it out of the car for her daughter, which she acknowledges may be at least partially to blame for some of her back pain. PT-OP-C Subjective Start: 06/01/21 15:09 Freq: Status: Active Protocol: Document 06/22/21 16:45 DCW (Rec: 06/22/21 17:32 DCW [id number]) OP-PT Subjective Patient Comments Patient Comments It feels good for a few days, then I do something, and it hurts for a few days, but then it goes away, so I guess it's getting better. PT-OP-F Manual Assessment Start: 06/01/21 15:09 Freq: Status: Active Protocol: Document 06/01/21 14:30 DCW (Rec: 06/01/21 17:51 DCW [id number]) Manual Assessments Soft Tissue Assessment Soft Tissue Mobility Assessment Severe tone right QL, right thoracic and lumbar paraspinals Joint Mobility Assessment Joint Mobility Assessment Hypomobility throughout thoracic and lumbar spine PT-OP-J Posture/Palpation/Skin Start: 06/01/21 15:09 Freq: Status: Active Protocol: Document 06/01/21 14:30 DCW (Rec: 06/01/21 17:51 DCW [id number]) Posture Evaluation Position Standing Evaluation View Posterior Head/C-Spine Posture Side Bent Left T-Spine Posture Flexible Scoliosis on (R), Increased Kyphosis Scapula Posture (L) Elevated,(R) Depressed PT-OP-K Range of Motion Start: 06/01/21 15:09 Freq: Status: Active Protocol: Document 06/01/21 14:30 DCW (Rec: 06/01/21 17:51 DCW [id number]) Lumbar Spine Range of Motion Lumbar Spine Active Degrees Testing Position Standing Flexion 40 Extension 10 Lateral Flexion Left 58 Lateral Flexion Right 53 ROM Limitations Soft Tissue Tightness,Muscle Tone Comments Lateral flexion measured in cm from fingertips to floor PT-OP-L Special Tests Start: 06/01/21 15:09 Freq: Status: Active Protocol: Document 06/01/21 14:30 DCW (Rec: 06/01/21 17:51 DCW [id number]) Special Tests Lumbar Spine Special Tests Vertical Spine Loading Test Results Negative Slump Test Results Negative Compression Test Results Negative PT-OP-M Strength Start: 06/01/21 17:51 Freq: Status: Active Protocol: Document 06/01/21 14:30 DCW (Rec: 06/01/21 17:52 DCW [id number]) Trunk Strength Trunk Manual Muscle Testing Testing Position Supine Core Stabilization TrA MMT - 3-/5. Pt struggles to properly contract TrA, requires verbal and tactile cues, still very inconsistent. PT-OP-Q Treatments Start: 06/01/21 15:09 Freq: Status: Active Protocol: Document 06/22/21 16:45 DCW (Rec: 06/22/21 17:32 DCW [id number]) Gym Equipment Cable Column (Body Solid) Pallof Press Resistance 10# Therapeutic Ball 3 Exercise Details Trunk rotations vs resistance Ball Size/Color Red - 55 cm Lv 2 T-band 2 Exercise Details Pelvic tilts, circles Ball Size/Color Red - 55 cm Body Position Sitting 1 Exercise Details Low Trunk Rotations Ball Size/Color Blue - 45 cm Body Position Supine Therapeutic Exercises Supine Exercises bridges Side bilateral Reps/Minutes 2x10 Comments heels on mat for post chain recruitment Manual Therapy Treatment Soft Tissue Mobilization 1 Body Location R T/L Paraspinals, QL Mobilization Type Sustained Pressure,Trigger Point Release Intensity/Depth Moderate Body Position Sidelying Manual Traction 1 Details Inferior traction of R iliac crest Body Position Sidelying PT-OP-T Assessment and Plan Start: 06/01/21 15:09 Freq: Status: Active Protocol: Document 06/22/21 16:45 DCW (Rec: 06/22/21 17:32 DCW [id number]) Physical Therapy Assessment Impairments Impairments Activity Tolerance,Functional Activities,Functional Mobility ,Pain,Posture,ROM,Soft Tissue Mobility,Strength,Tone Goals Three Impairment Pt has severe tone along right QL, paraspinals Phytochemistry Professor Goal (LTG) Pt presents with tone reduced to mild, resulting in decreased scoliotic curvature and evened out shoulder height LTG Duration 08/02/21 Two Impairment Pt unable to to any activity longer than 20 minutes due to back pain Phytochemistry Professor Goal (LTG) Pt to demonstrate ability to stand at sink for 40 minutes without increased back pain to allow for 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 LTG Duration 08/02/21 One Impairment Pt does not have an appropriate home exercise program Short Term Goal (STG) Pt to be independent and compliant with an appropriate HEP STG Duration 07/02/21 Assessment Summary Assessment Pt tolerating treatment well, showing improved tone and mobility through low back. Physical Therapy Plan Frequency and Duration Frequency of Treatment 2x/Week Duration of Treatment Two months Plan of Care Start Date 06/01/21 Plan of Care End Date 08/02/21 Therapeutic Interventions Therapeutic Interventions Home Exercise Program,Joint Mobilizations,Manual Therapy, Patient/Caregiver Education, Self-Care/Home Management,Soft Tissue Mobilization,Taping, Therapeutic Activities, Therapeutic Exercises Modalities Cold Pack/Ice Massage,Electric Stimulation,Hot Packs, Ultrasound Next Visit Focus/Plan Next Note Type Treatment Note Next Visit Plan STM, Flexibility, Lumbar mobility
--- NOTE | 2021-06-24 16:50 | PT.OTN ---
Current Diagnoses Stiffness of other specified joint, not elsewhere classified (06/24/21) Low back pain (06/24/21) Pain in thoracic spine (06/24/21) Muscle spasm of back (06/24/21) Abnormal posture (06/24/21) Physical Therapy Treatment Note PT-OP-A Visit Information Start: 06/01/21 15:09 Freq: Status: Active Protocol: Document 06/24/21 16:00 DCW (Rec: 06/24/21 16:50 DCW [id number]) Out-Patient Physical Therapy Visit Information Visit Information Visit Type Treatment Note Visit Start Time 16:00 Visit Stop Time 16:45 Total Visit Minutes 45 Visit Number 6 Number of ASSET MANAGER Visits 0 Evaluation Information Evaluation Date 06/01/21 PT-OP-B Current Condition Start: 06/01/21 15:09 Freq: Status: Active Protocol: Document 06/01/21 14:30 DCW (Rec: 06/01/21 17:51 DCW [id number]) Current Condition History of Current Condition Onset Date 40+ year history Current Complaints Mid-low back pain History of Current Condition Pt is a 76 year old female presenting with a 40+ year history of low back problems, reporting an 8 month history of worsening pain a little higher than my usual pain, along the upper lumbar spine and lower thoracic, right > left. Pt notes her initial injury occurred when she was in her 30s, when she tripped and fell on a sidewalk. Reports at the time, she was having fairly severe pain for ~1 year, and was finally assessed correctly and had a surgery performed, admits it hasn't really been a problem since, other than occasional episodes of general back pain and some sciatic pain every now and then. Recently, however, she has had worsening instances of pain in her back . Notes that typically she is able to do any activity, but can only tolerating in for about 20 minutes before she needs to stop and rest and change positions to relieve some pain. Additionally, pt notes that her daughter has MS , and that she frequently has to put the wheelchair in and take it out of the car for her daughter, which she acknowledges may be at least partially to blame for some of her back pain. PT-OP-C Subjective Start: 06/01/21 15:09 Freq: Status: Active Protocol: Document 06/24/21 16:00 DCW (Rec: 06/24/21 16:50 DCW [id number]) OP-PT Subjective Patient Comments Patient Comments Not bad, I just ache after driving up to [place] and getting my daughter's wheelchair in and out of the car half a dozen times. PT-OP-F Manual Assessment Start: 06/01/21 15:09 Freq: Status: Active Protocol: Document 06/01/21 14:30 DCW (Rec: 06/01/21 17:51 DCW [id number]) Manual Assessments Soft Tissue Assessment Soft Tissue Mobility Assessment Severe tone right QL, right thoracic and lumbar paraspinals Joint Mobility Assessment Joint Mobility Assessment Hypomobility throughout thoracic and lumbar spine PT-OP-J Posture/Palpation/Skin Start: 06/01/21 15:09 Freq: Status: Active Protocol: Document 06/01/21 14:30 DCW (Rec: 06/01/21 17:51 DCW [id number]) Posture Evaluation Position Standing Evaluation View Posterior Head/C-Spine Posture Side Bent Left T-Spine Posture Flexible Scoliosis on (R), Increased Kyphosis Scapula Posture (L) Elevated,(R) Depressed PT-OP-K Range of Motion Start: 06/01/21 15:09 Freq: Status: Active Protocol: Document 06/01/21 14:30 DCW (Rec: 06/01/21 17:51 DCW [id number]) Lumbar Spine Range of Motion Lumbar Spine Active Degrees Testing Position Standing Flexion 40 Extension 10 Lateral Flexion Left 58 Lateral Flexion Right 53 ROM Limitations Soft Tissue Tightness,Muscle Tone Comments Lateral flexion measured in cm from fingertips to floor PT-OP-L Special Tests Start: 06/01/21 15:09 Freq: Status: Active Protocol: Document 06/01/21 14:30 DCW (Rec: 06/01/21 17:51 DCW [id number]) Special Tests Lumbar Spine Special Tests Vertical Spine Loading Test Results Negative Slump Test Results Negative Compression Test Results Negative PT-OP-M Strength Start: 06/01/21 17:51 Freq: Status: Active Protocol: Document 06/01/21 14:30 DCW (Rec: 06/01/21 17:52 DCW [id number]) Trunk Strength Trunk Manual Muscle Testing Testing Position Supine Core Stabilization TrA MMT - 3-/5. Pt struggles to properly contract TrA, requires verbal and tactile cues, still very inconsistent. PT-OP-Q Treatments Start: 06/01/21 15:09 Freq: Status: Active Protocol: Document 06/24/21 16:00 DCW (Rec: 06/24/21 16:50 DCW [id number]) Gym Equipment Cable Column (Body Solid) Pallof Press Resistance 10# Therapeutic Ball 2 Exercise Details Pelvic tilts, circles Ball Size/Color Red - 55 cm Body Position Sitting 1 Exercise Details Low Trunk Rotations Ball Size/Color Blue - 45 cm Body Position Supine Therapeutic Exercises Standing Exercises 1 Standing Exercise Name Hip hiking Side bilateral Equipment Used 6 step Other Exercises 1 Other Exercise Name Resisted side-stepping Resistance Green Equipment Used T-band Manual Therapy Treatment Soft Tissue Mobilization 1 Body Location R T/L Paraspinals, QL Mobilization Type Sustained Pressure,Trigger Point Release Intensity/Depth Moderate Body Position Sidelying Manual Traction 1 Details Inferior traction of R iliac crest Body Position Sidelying PT-OP-T Assessment and Plan Start: 06/01/21 15:09 Freq: Status: Active Protocol: Document 06/24/21 16:00 DCW (Rec: 06/24/21 16:50 DCW [id number]) Physical Therapy Assessment Impairments Impairments Activity Tolerance,Functional Activities,Functional Mobility ,Pain,Posture,ROM,Soft Tissue Mobility,Strength,Tone Goals Three Impairment Pt has severe tone along right QL, paraspinals Pipe Supervisor Goal (LTG) Pt presents with tone reduced to mild, resulting in decreased scoliotic curvature and evened out shoulder height LTG Duration 08/02/21 Two Impairment Pt unable to to any activity longer than 20 minutes due to back pain Pipe Supervisor Goal (LTG) Pt to demonstrate ability to stand at sink for 40 minutes without increased back pain to allow for 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 LTG Duration 08/02/21 One Impairment Pt does not have an appropriate home exercise program Short Term Goal (STG) Pt to be independent and compliant with an appropriate HEP STG Duration 07/02/21 Assessment Summary Assessment Pt still responding well with therapy, but continues to experience difficulty with transferring daughter's w/c Physical Therapy Plan Frequency and Duration Frequency of Treatment 2x/Week Duration of Treatment Two months Plan of Care Start Date 06/01/21 Plan of Care End Date 08/02/21 Therapeutic Interventions Therapeutic Interventions Home Exercise Program,Joint Mobilizations,Manual Therapy, Patient/Caregiver Education, Self-Care/Home Management,Soft Tissue Mobilization,Taping, Therapeutic Activities, Therapeutic Exercises Modalities Cold Pack/Ice Massage,Electric Stimulation,Hot Packs, Ultrasound Next Visit Focus/Plan Next Note Type Treatment Note Next Visit Plan STM, Flexibility, Lumbar mobility
--- NOTE | 2021-06-29 12:42 | PT.OTN ---
Current Diagnoses Stiffness of other specified joint, not elsewhere classified (06/29/21) Low back pain (06/29/21) Pain in thoracic spine (06/29/21) Muscle spasm of back (06/29/21) Abnormal posture (06/29/21) Physical Therapy Treatment Note PT-OP-A Visit Information Start: 06/01/21 15:09 Freq: Status: Active Protocol: Document 06/29/21 12:00 DCW (Rec: 06/29/21 12:42 DCW [id number]) Out-Patient Physical Therapy Visit Information Visit Information Visit Type Treatment Note Visit Start Time 12:00 Visit Stop Time 12:45 Total Visit Minutes 45 Visit Number 7 Number of SH[employer] WEB DEVELOPER Visits 0 Evaluation Information Evaluation Date 06/01/21 PT-OP-B Current Condition Start: 06/01/21 15:09 Freq: Status: Active Protocol: Document 06/01/21 14:30 DCW (Rec: 06/01/21 17:51 DCW [id number]) Current Condition History of Current Condition Onset Date 40+ year history Current Complaints Mid-low back pain History of Current Condition Pt is a 76 year old female presenting with a 40+ year history of low back problems, reporting an 8 month history of worsening pain a little higher than my usual pain, along the upper lumbar spine and lower thoracic, right > left. Pt notes her initial injury occurred when she was in her 30s, when she tripped and fell on a sidewalk. Reports at the time, she was having fairly severe pain for ~1 year, and was finally assessed correctly and had a surgery performed, admits it hasn't really been a problem since, other than occasional episodes of general back pain and some sciatic pain every now and then. Recently, however, she has had worsening instances of pain in her back . Notes that typically she is able to do any activity, but can only tolerating in for about 20 minutes before she needs to stop and rest and change positions to relieve some pain. Additionally, pt notes that her daughter has MS , and that she frequently has to put the wheelchair in and take it out of the car for her daughter, which she acknowledges may be at least partially to blame for some of her back pain. PT-OP-C Subjective Start: 06/01/21 15:09 Freq: Status: Active Protocol: Document 06/29/21 12:00 DCW (Rec: 06/29/21 12:42 DCW [id number]) OP-PT Subjective Patient Comments Patient Comments I think I'm doing well. PT-OP-F Manual Assessment Start: 06/01/21 15:09 Freq: Status: Active Protocol: Document 06/01/21 14:30 DCW (Rec: 06/01/21 17:51 DCW [id number]) Manual Assessments Soft Tissue Assessment Soft Tissue Mobility Assessment Severe tone right QL, right thoracic and lumbar paraspinals Joint Mobility Assessment Joint Mobility Assessment Hypomobility throughout thoracic and lumbar spine PT-OP-J Posture/Palpation/Skin Start: 06/01/21 15:09 Freq: Status: Active Protocol: Document 06/01/21 14:30 DCW (Rec: 06/01/21 17:51 DCW [id number]) Posture Evaluation Position Standing Evaluation View Posterior Head/C-Spine Posture Side Bent Left T-Spine Posture Flexible Scoliosis on (R), Increased Kyphosis Scapula Posture (L) Elevated,(R) Depressed PT-OP-K Range of Motion Start: 06/01/21 15:09 Freq: Status: Active Protocol: Document 06/01/21 14:30 DCW (Rec: 06/01/21 17:51 DCW [id number]) Lumbar Spine Range of Motion Lumbar Spine Active Degrees Testing Position Standing Flexion 40 Extension 10 Lateral Flexion Left 58 Lateral Flexion Right 53 ROM Limitations Soft Tissue Tightness,Muscle Tone Comments Lateral flexion measured in cm from fingertips to floor PT-OP-L Special Tests Start: 06/01/21 15:09 Freq: Status: Active Protocol: Document 06/01/21 14:30 DCW (Rec: 06/01/21 17:51 DCW [id number]) Special Tests Lumbar Spine Special Tests Vertical Spine Loading Test Results Negative Slump Test Results Negative Compression Test Results Negative PT-OP-M Strength Start: 06/01/21 17:51 Freq: Status: Active Protocol: Document 06/01/21 14:30 DCW (Rec: 06/01/21 17:52 DCW [id number]) Trunk Strength Trunk Manual Muscle Testing Testing Position Supine Core Stabilization TrA MMT - 3-/5. Pt struggles to properly contract TrA, requires verbal and tactile cues, still very inconsistent. PT-OP-Q Treatments Start: 06/01/21 15:09 Freq: Status: Active Protocol: Document 06/29/21 12:00 DCW (Rec: 06/29/21 12:42 DCW [id number]) Gym Equipment Cable Column (Body Solid) Pallof Press Resistance 10# Therapeutic Ball 2 Exercise Details Pelvic tilts, circles Ball Size/Color Red - 55 cm Body Position Sitting 1 Exercise Details Low Trunk Rotations Ball Size/Color Blue - 45 cm Body Position Supine Therapeutic Exercises Sidelying Exercises 3 Sidelying Exercise Name Reverse Clamshells Side bilateral 2 Sidelying Exercise Name Clamshells Side bilateral 1 Sidelying Exercise Name Hip abduction Side bilateral Standing Exercises 1 Standing Exercise Name Hip hiking Side bilateral Equipment Used 6 step Manual Therapy Treatment Soft Tissue Mobilization 1 Body Location R T/L Paraspinals, QL Mobilization Type Sustained Pressure,Trigger Point Release Intensity/Depth Moderate Body Position Sidelying Manual Traction 1 Details Inferior traction of R iliac crest Body Position Sidelying PT-OP-T Assessment and Plan Start: 06/01/21 15:09 Freq: Status: Active Protocol: Document 06/29/21 12:00 DCW (Rec: 06/29/21 12:42 DCW [id number]) Physical Therapy Assessment Impairments Impairments Activity Tolerance,Functional Activities,Functional Mobility ,Pain,Posture,ROM,Soft Tissue Mobility,Strength,Tone Goals Three Impairment Pt has severe tone along right QL, paraspinals Telephone Ad Taker Goal (LTG) Pt presents with tone reduced to mild, resulting in decreased scoliotic curvature and evened out shoulder height LTG Duration 08/02/21 Two Impairment Pt unable to to any activity longer than 20 minutes due to back pain Detention Goal (LTG) Pt to demonstrate ability to stand at sink for 40 minutes without increased back pain to allow for 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 LTG Duration 08/02/21 One Impairment Pt does not have an appropriate home exercise program Short Term Goal (STG) Pt to be independent and compliant with an appropriate HEP STG Duration 07/02/21 Assessment Summary Assessment Improving segmentation between lumbar spine and hip recently , better mobility overall. Physical Therapy Plan Frequency and Duration Frequency of Treatment 2x/Week Duration of Treatment Two months Plan of Care Start Date 06/01/21 Plan of Care End Date 08/02/21 Therapeutic Interventions Therapeutic Interventions Home Exercise Program,Joint Mobilizations,Manual Therapy, Patient/Caregiver Education, Self-Care/Home Management,Soft Tissue Mobilization,Taping, Therapeutic Activities, Therapeutic Exercises Modalities Cold Pack/Ice Massage,Electric Stimulation,Hot Packs, Ultrasound Next Visit Focus/Plan Next Note Type Treatment Note Next Visit Plan STM, Flexibility, Lumbar mobility
--- NOTE | 2021-07-01 10:30 | PT.OTN ---
Current Diagnoses Stiffness of other specified joint, not elsewhere classified (07/01/21) Low back pain (07/01/21) Pain in thoracic spine (07/01/21) Muscle spasm of back (07/01/21) Abnormal posture (07/01/21) Physical Therapy Treatment Note PT-OP-A Visit Information Start: 06/01/21 15:09 Freq: Status: Active Protocol: Document 07/01/21 09:45 DCW (Rec: 07/01/21 10:30 DCW [id number]) Out-Patient Physical Therapy Visit Information Visit Information Visit Type Treatment Note Visit Start Time 09:45 Visit Stop Time 10:30 Total Visit Minutes 45 Visit Number 8 Number of WHEAT WASHER Visits 0 Evaluation Information Evaluation Date 06/01/21 PT-OP-B Current Condition Start: 06/01/21 15:09 Freq: Status: Active Protocol: Document 06/01/21 14:30 DCW (Rec: 06/01/21 17:51 DCW [id number]) Current Condition History of Current Condition Onset Date 40+ year history Current Complaints Mid-low back pain History of Current Condition Pt is a 76 year old female presenting with a 40+ year history of low back problems, reporting an 8 month history of worsening pain a little higher than my usual pain, along the upper lumbar spine and lower thoracic, right > left. Pt notes her initial injury occurred when she was in her 30s, when she tripped and fell on a sidewalk. Reports at the time, she was having fairly severe pain for ~1 year, and was finally assessed correctly and had a surgery performed, admits it hasn't really been a problem since, other than occasional episodes of general back pain and some sciatic pain every now and then. Recently, however, she has had worsening instances of pain in her back . Notes that typically she is able to do any activity, but can only tolerating in for about 20 minutes before she needs to stop and rest and change positions to relieve some pain. Additionally, pt notes that her daughter has MS , and that she frequently has to put the wheelchair in and take it out of the car for her daughter, which she acknowledges may be at least partially to blame for some of her back pain. PT-OP-C Subjective Start: 06/01/21 15:09 Freq: Status: Active Protocol: Document 07/01/21 09:45 DCW (Rec: 07/01/21 10:30 DCW [id number]) OP-PT Subjective Patient Comments Patient Comments Pt reports her back has been noticeably better the past two days. PT-OP-F Manual Assessment Start: 06/01/21 15:09 Freq: Status: Active Protocol: Document 06/01/21 14:30 DCW (Rec: 06/01/21 17:51 DCW [id number]) Manual Assessments Soft Tissue Assessment Soft Tissue Mobility Assessment Severe tone right QL, right thoracic and lumbar paraspinals Joint Mobility Assessment Joint Mobility Assessment Hypomobility throughout thoracic and lumbar spine PT-OP-J Posture/Palpation/Skin Start: 06/01/21 15:09 Freq: Status: Active Protocol: Document 06/01/21 14:30 DCW (Rec: 06/01/21 17:51 DCW [id number]) Posture Evaluation Position Standing Evaluation View Posterior Head/C-Spine Posture Side Bent Left T-Spine Posture Flexible Scoliosis on (R), Increased Kyphosis Scapula Posture (L) Elevated,(R) Depressed PT-OP-K Range of Motion Start: 06/01/21 15:09 Freq: Status: Active Protocol: Document 06/01/21 14:30 DCW (Rec: 06/01/21 17:51 DCW [id number]) Lumbar Spine Range of Motion Lumbar Spine Active Degrees Testing Position Standing Flexion 40 Extension 10 Lateral Flexion Left 58 Lateral Flexion Right 53 ROM Limitations Soft Tissue Tightness,Muscle Tone Comments Lateral flexion measured in cm from fingertips to floor PT-OP-L Special Tests Start: 06/01/21 15:09 Freq: Status: Active Protocol: Document 06/01/21 14:30 DCW (Rec: 06/01/21 17:51 DCW [id number]) Special Tests Lumbar Spine Special Tests Vertical Spine Loading Test Results Negative Slump Test Results Negative Compression Test Results Negative PT-OP-M Strength Start: 06/01/21 17:51 Freq: Status: Active Protocol: Document 06/01/21 14:30 DCW (Rec: 06/01/21 17:52 DCW [id number]) Trunk Strength Trunk Manual Muscle Testing Testing Position Supine Core Stabilization TrA MMT - 3-/5. Pt struggles to properly contract TrA, requires verbal and tactile cues, still very inconsistent. PT-OP-Q Treatments Start: 06/01/21 15:09 Freq: Status: Active Protocol: Document 07/01/21 09:45 DCW (Rec: 07/01/21 10:30 DCW [id number]) Gym Equipment Cable Column (Body Solid) Pallof Press Resistance 10# Therapeutic Ball 2 Exercise Details Pelvic tilts, circles Ball Size/Color Red - 55 cm Body Position Sitting 1 Exercise Details Low Trunk Rotations Ball Size/Color Blue - 45 cm Body Position Supine Therapeutic Exercises Sidelying Exercises 4 Sidelying Exercise Name Reach and roll Side bilateral 3 Sidelying Exercise Name Reverse Clamshells Side bilateral Reps/Minutes x15 2 Sidelying Exercise Name Clamshells Side bilateral Reps/Minutes x15 1 Sidelying Exercise Name Hip abduction Side bilateral Reps/Minutes x15 Standing Exercises 1 Standing Exercise Name Hip hiking Side bilateral Equipment Used 6 step Other Exercises 1 Other Exercise Name Resisted side-stepping Resistance Green Equipment Used T-band Manual Therapy Treatment Soft Tissue Mobilization 1 Body Location R T/L Paraspinals, QL Mobilization Type Sustained Pressure,Trigger Point Release Intensity/Depth Moderate Body Position Sidelying Manual Traction 1 Details Inferior traction of R iliac crest Body Position Sidelying PT-OP-T Assessment and Plan Start: 06/01/21 15:09 Freq: Status: Active Protocol: Document 07/01/21 09:45 DCW (Rec: 07/01/21 10:30 DCW [id number]) Physical Therapy Assessment Impairments Impairments Activity Tolerance,Functional Activities,Functional Mobility ,Pain,Posture,ROM,Soft Tissue Mobility,Strength,Tone Goals Three Impairment Pt has severe tone along right QL, paraspinals Nursing Home Goal (LTG) Pt presents with tone reduced to mild, resulting in decreased scoliotic curvature and evened out shoulder height LTG Duration 08/02/21 Two Impairment Pt unable to to any activity longer than 20 minutes due to back pain General Utility Maintenance Repairer Goal (LTG) Pt to demonstrate ability to stand at sink for 40 minutes without increased back pain to allow for 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 LTG Duration 08/02/21 One Impairment Pt does not have an appropriate home exercise program Short Term Goal (STG) Pt to be independent and compliant with an appropriate HEP STG Duration 07/02/21 Assessment Summary Assessment Pt continues to show improvement with exercises, having less frequent back pain . Physical Therapy Plan Frequency and Duration Frequency of Treatment 2x/Week Duration of Treatment Two months Plan of Care Start Date 06/01/21 Plan of Care End Date 08/02/21 Therapeutic Interventions Therapeutic Interventions Home Exercise Program,Joint Mobilizations,Manual Therapy, Patient/Caregiver Education, Self-Care/Home Management,Soft Tissue Mobilization,Taping, Therapeutic Activities, Therapeutic Exercises Modalities Cold Pack/Ice Massage,Electric Stimulation,Hot Packs, Ultrasound Next Visit Focus/Plan Next Note Type Treatment Note Next Visit Plan STM, Flexibility, Lumbar mobility
--- NOTE | 2021-07-06 12:45 | PT.OTN ---
Current Diagnoses Stiffness of other specified joint, not elsewhere classified (07/06/21) Low back pain (07/06/21) Pain in thoracic spine (07/06/21) Muscle spasm of back (07/06/21) Abnormal posture (07/06/21) Physical Therapy Treatment Note PT-OP-A Visit Information Start: 06/01/21 15:09 Freq: Status: Active Protocol: Document 07/06/21 12:00 DCW (Rec: 07/06/21 12:45 DCW [id number]) Out-Patient Physical Therapy Visit Information Visit Information Visit Type Treatment Note Visit Start Time 12:00 Visit Stop Time 12:45 Total Visit Minutes 45 Visit Number 9 Number of CARTOGRAPHIC TECHNICIAN Visits 0 Evaluation Information Evaluation Date 06/01/21 PT-OP-B Current Condition Start: 06/01/21 15:09 Freq: Status: Active Protocol: Document 06/01/21 14:30 DCW (Rec: 06/01/21 17:51 DCW [id number]) Current Condition History of Current Condition Onset Date 40+ year history Current Complaints Mid-low back pain History of Current Condition Pt is a 76 year old female presenting with a 40+ year history of low back problems, reporting an 8 month history of worsening pain a little higher than my usual pain, along the upper lumbar spine and lower thoracic, right > left. Pt notes her initial injury occurred when she was in her 30s, when she tripped and fell on a sidewalk. Reports at the time, she was having fairly severe pain for ~1 year, and was finally assessed correctly and had a surgery performed, admits it hasn't really been a problem since, other than occasional episodes of general back pain and some sciatic pain every now and then. Recently, however, she has had worsening instances of pain in her back . Notes that typically she is able to do any activity, but can only tolerating in for about 20 minutes before she needs to stop and rest and change positions to relieve some pain. Additionally, pt notes that her daughter has MS , and that she frequently has to put the wheelchair in and take it out of the car for her daughter, which she acknowledges may be at least partially to blame for some of her back pain. PT-OP-C Subjective Start: 06/01/21 15:09 Freq: Status: Active Protocol: Document 07/06/21 12:00 DCW (Rec: 07/06/21 12:45 DCW [id number]) OP-PT Subjective Patient Comments Patient Comments I'm just having a really nice day today. PT-OP-F Manual Assessment Start: 06/01/21 15:09 Freq: Status: Active Protocol: Document 06/01/21 14:30 DCW (Rec: 06/01/21 17:51 DCW [id number]) Manual Assessments Soft Tissue Assessment Soft Tissue Mobility Assessment Severe tone right QL, right thoracic and lumbar paraspinals Joint Mobility Assessment Joint Mobility Assessment Hypomobility throughout thoracic and lumbar spine PT-OP-J Posture/Palpation/Skin Start: 06/01/21 15:09 Freq: Status: Active Protocol: Document 06/01/21 14:30 DCW (Rec: 06/01/21 17:51 DCW [id number]) Posture Evaluation Position Standing Evaluation View Posterior Head/C-Spine Posture Side Bent Left T-Spine Posture Flexible Scoliosis on (R), Increased Kyphosis Scapula Posture (L) Elevated,(R) Depressed PT-OP-K Range of Motion Start: 06/01/21 15:09 Freq: Status: Active Protocol: Document 06/01/21 14:30 DCW (Rec: 06/01/21 17:51 DCW [id number]) Lumbar Spine Range of Motion Lumbar Spine Active Degrees Testing Position Standing Flexion 40 Extension 10 Lateral Flexion Left 58 Lateral Flexion Right 53 ROM Limitations Soft Tissue Tightness,Muscle Tone Comments Lateral flexion measured in cm from fingertips to floor PT-OP-L Special Tests Start: 06/01/21 15:09 Freq: Status: Active Protocol: Document 06/01/21 14:30 DCW (Rec: 06/01/21 17:51 DCW [id number]) Special Tests Lumbar Spine Special Tests Vertical Spine Loading Test Results Negative Slump Test Results Negative Compression Test Results Negative PT-OP-M Strength Start: 06/01/21 17:51 Freq: Status: Active Protocol: Document 06/01/21 14:30 DCW (Rec: 06/01/21 17:52 DCW [id number]) Trunk Strength Trunk Manual Muscle Testing Testing Position Supine Core Stabilization TrA MMT - 3-/5. Pt struggles to properly contract TrA, requires verbal and tactile cues, still very inconsistent. PT-OP-Q Treatments Start: 06/01/21 15:09 Freq: Status: Active Protocol: Document 07/06/21 12:00 DCW (Rec: 07/06/21 12:45 DCW [id number]) Gym Equipment Cable Column (Body Solid) Pallof Press Resistance 10# Therapeutic Ball 2 Exercise Details Pelvic tilts, circles Ball Size/Color Red - 55 cm Body Position Sitting 1 Exercise Details Low Trunk Rotations Ball Size/Color Blue - 45 cm Body Position Supine Therapeutic Exercises Standing Exercises 1 Standing Exercise Name Hip hiking Side bilateral Equipment Used 6 step Other Exercises 1 Other Exercise Name Resisted side-stepping Resistance Green Equipment Used T-band Manual Therapy Treatment Soft Tissue Mobilization 1 Body Location R T/L Paraspinals, QL Mobilization Type Sustained Pressure,Trigger Point Release Intensity/Depth Moderate Body Position Sidelying Manual Traction 1 Details Inferior traction of R iliac crest Body Position Sidelying PT-OP-T Assessment and Plan Start: 06/01/21 15:09 Freq: Status: Active Protocol: Document 07/06/21 12:00 DCW (Rec: 07/06/21 12:45 DCW [id number]) Physical Therapy Assessment Impairments Impairments Activity Tolerance,Functional Activities,Functional Mobility ,Pain,Posture,ROM,Soft Tissue Mobility,Strength,Tone Goals Three Impairment Pt has severe tone along right QL, paraspinals Longterm Goal (LTG) Pt presents with tone reduced to mild, resulting in decreased scoliotic curvature and evened out shoulder height LTG Duration 08/02/21 Two Impairment Pt unable to to any activity longer than 20 minutes due to back pain Longterm Goal (LTG) Pt to demonstrate ability to stand at sink for 40 minutes without increased back pain to allow for 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 LTG Duration 08/02/21 One Impairment Pt does not have an appropriate home exercise program Short Term Goal (STG) Pt to be independent and compliant with an appropriate HEP STG Duration 07/02/21 Assessment Summary Assessment Pt tolerated treatment well today, improvement continues. Physical Therapy Plan Frequency and Duration Frequency of Treatment 2x/Week Duration of Treatment Two months Plan of Care Start Date 06/01/21 Plan of Care End Date 08/02/21 Therapeutic Interventions Therapeutic Interventions Home Exercise Program,Joint Mobilizations,Manual Therapy, Patient/Caregiver Education, Self-Care/Home Management,Soft Tissue Mobilization,Taping, Therapeutic Activities, Therapeutic Exercises Modalities Cold Pack/Ice Massage,Electric Stimulation,Hot Packs, Ultrasound Next Visit Focus/Plan Next Note Type Treatment Note Next Visit Plan STM, Flexibility, Lumbar mobility
--- NOTE | 2021-07-08 12:48 | PT.OTN ---
Current Diagnoses Stiffness of other specified joint, not elsewhere classified (07/08/21) Low back pain (07/08/21) Pain in thoracic spine (07/08/21) Muscle spasm of back (07/08/21) Abnormal posture (07/08/21) Physical Therapy Treatment Note PT-OP-A Visit Information Start: 06/01/21 15:09 Freq: Status: Active Protocol: Document 07/08/21 12:00 DCW (Rec: 07/08/21 12:47 DCW [id number]) Out-Patient Physical Therapy Visit Information Visit Information Visit Type Treatment Note Visit Start Time 12:00 Visit Stop Time 12:45 Total Visit Minutes 45 Visit Number 10 Number of CABLE LAYER Visits 0 Evaluation Information Evaluation Date 06/01/21 PT-OP-B Current Condition Start: 06/01/21 15:09 Freq: Status: Active Protocol: Document 06/01/21 14:30 DCW (Rec: 06/01/21 17:51 DCW [id number]) Current Condition History of Current Condition Onset Date 40+ year history Current Complaints Mid-low back pain History of Current Condition Pt is a 76 year old female presenting with a 40+ year history of low back problems, reporting an 8 month history of worsening pain a little higher than my usual pain, along the upper lumbar spine and lower thoracic, right > left. Pt notes her initial injury occurred when she was in her 30s, when she tripped and fell on a sidewalk. Reports at the time, she was having fairly severe pain for ~1 year, and was finally assessed correctly and had a surgery performed, admits it hasn't really been a problem since, other than occasional episodes of general back pain and some sciatic pain every now and then. Recently, however, she has had worsening instances of pain in her back . Notes that typically she is able to do any activity, but can only tolerating in for about 20 minutes before she needs to stop and rest and change positions to relieve some pain. Additionally, pt notes that her daughter has MS , and that she frequently has to put the wheelchair in and take it out of the car for her daughter, which she acknowledges may be at least partially to blame for some of her back pain. PT-OP-C Subjective Start: 06/01/21 15:09 Freq: Status: Active Protocol: Document 07/08/21 12:00 DCW (Rec: 07/08/21 12:47 DCW [id number]) OP-PT Subjective Patient Comments Patient Comments Pt notes her back is okay as long as I don't do anything. 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 PT-OP-F Manual Assessment Start: 06/01/21 15:09 Freq: Status: Active Protocol: Document 06/01/21 14:30 DCW (Rec: 06/01/21 17:51 DCW [id number]) Manual Assessments Soft Tissue Assessment Soft Tissue Mobility Assessment Severe tone right QL, right thoracic and lumbar paraspinals Joint Mobility Assessment Joint Mobility Assessment Hypomobility throughout thoracic and lumbar spine PT-OP-J Posture/Palpation/Skin Start: 06/01/21 15:09 Freq: Status: Active Protocol: Document 06/01/21 14:30 DCW (Rec: 06/01/21 17:51 DCW [id number]) Posture Evaluation Position Standing Evaluation View Posterior Head/C-Spine Posture Side Bent Left T-Spine Posture Flexible Scoliosis on (R), Increased Kyphosis Scapula Posture (L) Elevated,(R) Depressed PT-OP-K Range of Motion Start: 06/01/21 15:09 Freq: Status: Active Protocol: Document 06/01/21 14:30 DCW (Rec: 06/01/21 17:51 DCW [id number]) Lumbar Spine Range of Motion Lumbar Spine Active Degrees Testing Position Standing Flexion 40 Extension 10 Lateral Flexion Left 58 Lateral Flexion Right 53 ROM Limitations Soft Tissue Tightness,Muscle Tone Comments Lateral flexion measured in cm from fingertips to floor PT-OP-L Special Tests Start: 06/01/21 15:09 Freq: Status: Active Protocol: Document 06/01/21 14:30 DCW (Rec: 06/01/21 17:51 DCW [id number]) Special Tests Lumbar Spine Special Tests Vertical Spine Loading Test Results Negative Slump Test Results Negative Compression Test Results Negative PT-OP-M Strength Start: 06/01/21 17:51 Freq: Status: Active Protocol: Document 06/01/21 14:30 DCW (Rec: 06/01/21 17:52 DCW [id number]) Trunk Strength Trunk Manual Muscle Testing Testing Position Supine Core Stabilization TrA MMT - 3-/5. Pt struggles to properly contract TrA, requires verbal and tactile cues, still very inconsistent. PT-OP-Q Treatments Start: 06/01/21 15:09 Freq: Status: Active Protocol: Document 07/08/21 12:00 DCW (Rec: 07/08/21 12:47 DCW [id number]) Gym Equipment Cable Column (Body Solid) Pallof Press Resistance 15# Therapeutic Ball 2 Exercise Details Pelvic tilts, circles Ball Size/Color Red - 55 cm Body Position Sitting 1 Exercise Details Low Trunk Rotations Ball Size/Color Blue - 45 cm Body Position Supine Therapeutic Exercises Standing Exercises 1 Standing Exercise Name Hip hiking Side bilateral Equipment Used 6 step Other Exercises 1 Other Exercise Name Resisted side-stepping Resistance Green Equipment Used T-band Manual Therapy Treatment Soft Tissue Mobilization 1 Body Location R T/L Paraspinals, QL Mobilization Type Sustained Pressure,Trigger Point Release Intensity/Depth Moderate Body Position Sidelying Manual Traction 1 Details Inferior traction of R iliac crest Body Position Sidelying PT-OP-T Assessment and Plan Start: 06/01/21 15:09 Freq: Status: Active Protocol: Document 07/08/21 12:00 DCW (Rec: 07/08/21 12:47 DCW [id number]) Physical Therapy Assessment Impairments Impairments Activity Tolerance,Functional Activities,Functional Mobility ,Pain,Posture,ROM,Soft Tissue Mobility,Strength,Tone Goals Three Impairment Pt has severe tone along right QL, paraspinals Retirement Goal (LTG) Pt presents with tone reduced to mild, resulting in decreased scoliotic curvature and evened out shoulder height LTG Duration 08/02/21 Two Impairment Pt unable to to any activity longer than 20 minutes due to back pain Retirement Goal (LTG) Pt to demonstrate ability to stand at sink for 40 minutes without increased back pain to allow for 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 LTG Duration 08/02/21 One Impairment Pt does not have an appropriate home exercise program Short Term Goal (STG) Pt to be independent and compliant with an appropriate HEP STG Duration 07/02/21 Assessment Summary Assessment Pt tone improving overall, showing increased core strength, doing well with increasing resistance. Physical Therapy Plan Frequency and Duration Frequency of Treatment 2x/Week Duration of Treatment Two months Plan of Care Start Date 06/01/21 Plan of Care End Date 08/02/21 Therapeutic Interventions Therapeutic Interventions Home Exercise Program,Joint Mobilizations,Manual Therapy, Patient/Caregiver Education, Self-Care/Home Management,Soft Tissue Mobilization,Taping, Therapeutic Activities, Therapeutic Exercises Modalities Cold Pack/Ice Massage,Electric Stimulation,Hot Packs, Ultrasound Next Visit Focus/Plan Next Note Type Treatment Note Next Visit Plan STM, Flexibility, Lumbar mobility
--- NOTE | 2021-07-13 12:46 | PT.OTN ---
Current Diagnoses Stiffness of other specified joint, not elsewhere classified (07/13/21) Low back pain (07/13/21) Pain in thoracic spine (07/13/21) Muscle spasm of back (07/13/21) Abnormal posture (07/13/21) Physical Therapy Treatment Note PT-OP-A Visit Information Start: 06/01/21 15:09 Freq: Status: Active Protocol: Document 07/13/21 12:00 DCW (Rec: 07/13/21 12:46 DCW [id number]) Out-Patient Physical Therapy Visit Information Visit Information Visit Type Treatment Note Visit Start Time 12:00 Visit Stop Time 12:45 Total Visit Minutes 45 Visit Number 11 Number of HEALTH NAVIGATOR Visits 0 Evaluation Information Evaluation Date 06/01/21 PT-OP-B Current Condition Start: 06/01/21 15:09 Freq: Status: Active Protocol: Document 06/01/21 14:30 DCW (Rec: 06/01/21 17:51 DCW [id number]) Current Condition History of Current Condition Onset Date 40+ year history Current Complaints Mid-low back pain History of Current Condition Pt is a 76 year old female presenting with a 40+ year history of low back problems, reporting an 8 month history of worsening pain a little higher than my usual pain, along the upper lumbar spine and lower thoracic, right > left. Pt notes her initial injury occurred when she was in her 30s, when she tripped and fell on a sidewalk. Reports at the time, she was having fairly severe pain for ~1 year, and was finally assessed correctly and had a surgery performed, admits it hasn't really been a problem since, other than occasional episodes of general back pain and some sciatic pain every now and then. Recently, however, she has had worsening instances of pain in her back . Notes that typically she is able to do any activity, but can only tolerating in for about 20 minutes before she needs to stop and rest and change positions to relieve some pain. Additionally, pt notes that her daughter has MS , and that she frequently has to put the wheelchair in and take it out of the car for her daughter, which she acknowledges may be at least partially to blame for some of her back pain. PT-OP-C Subjective Start: 06/01/21 15:09 Freq: Status: Active Protocol: Document 07/13/21 12:00 DCW (Rec: 07/13/21 12:46 DCW [id number]) OP-PT Subjective Patient Comments Patient Comments Pt reports her back is feeling okay at the moment. Pt notes that she feels like she's making some improvement, able to do things for a longer time before her back limits her, and when she isn't doing the things that flare it up, she feels really good. PT-OP-F Manual Assessment Start: 06/01/21 15:09 Freq: Status: Active Protocol: Document 06/01/21 14:30 DCW (Rec: 06/01/21 17:51 DCW [id number]) Manual Assessments Soft Tissue Assessment Soft Tissue Mobility Assessment Severe tone right QL, right thoracic and lumbar paraspinals Joint Mobility Assessment Joint Mobility Assessment Hypomobility throughout thoracic and lumbar spine PT-OP-J Posture/Palpation/Skin Start: 06/01/21 15:09 Freq: Status: Active Protocol: Document 06/01/21 14:30 DCW (Rec: 06/01/21 17:51 DCW [id number]) Posture Evaluation Position Standing Evaluation View Posterior Head/C-Spine Posture Side Bent Left T-Spine Posture Flexible Scoliosis on (R), Increased Kyphosis Scapula Posture (L) Elevated,(R) Depressed PT-OP-K Range of Motion Start: 06/01/21 15:09 Freq: Status: Active Protocol: Document 06/01/21 14:30 DCW (Rec: 06/01/21 17:51 DCW [id number]) Lumbar Spine Range of Motion Lumbar Spine Active Degrees Testing Position Standing Flexion 40 Extension 10 Lateral Flexion Left 58 Lateral Flexion Right 53 ROM Limitations Soft Tissue Tightness,Muscle Tone Comments Lateral flexion measured in cm from fingertips to floor PT-OP-L Special Tests Start: 06/01/21 15:09 Freq: Status: Active Protocol: Document 06/01/21 14:30 DCW (Rec: 06/01/21 17:51 DCW [id number]) Special Tests Lumbar Spine Special Tests Vertical Spine Loading Test Results Negative Slump Test Results Negative Compression Test Results Negative PT-OP-M Strength Start: 06/01/21 17:51 Freq: Status: Active Protocol: Document 06/01/21 14:30 DCW (Rec: 06/01/21 17:52 DCW [id number]) Trunk Strength Trunk Manual Muscle Testing Testing Position Supine Core Stabilization TrA MMT - 3-/5. Pt struggles to properly contract TrA, requires verbal and tactile cues, still very inconsistent. PT-OP-Q Treatments Start: 06/01/21 15:09 Freq: Status: Active Protocol: Document 07/13/21 12:00 DCW (Rec: 07/13/21 12:46 DCW [id number]) Gym Equipment Cable Column (Body Solid) Pallof Press Resistance 15# Therapeutic Ball 2 Exercise Details Pelvic tilts, circles Ball Size/Color Red - 55 cm Body Position Sitting 1 Exercise Details Low Trunk Rotations Ball Size/Color Blue - 45 cm Body Position Supine Therapeutic Exercises Standing Exercises 1 Standing Exercise Name Hip hiking Side bilateral Equipment Used 6 step Other Exercises 1 Other Exercise Name Resisted side-stepping Resistance Green Equipment Used T-band Manual Therapy Treatment Soft Tissue Mobilization 1 Body Location R T/L Paraspinals, QL Mobilization Type Sustained Pressure,Trigger Point Release Intensity/Depth Moderate Body Position Sidelying Manual Traction 1 Details Inferior traction of R iliac crest Body Position Sidelying PT-OP-T Assessment and Plan Start: 06/01/21 15:09 Freq: Status: Active Protocol: Document 07/13/21 12:00 DCW (Rec: 07/13/21 12:46 DCW [id number]) Physical Therapy Assessment Impairments Impairments Activity Tolerance,Functional Activities,Functional Mobility ,Pain,Posture,ROM,Soft Tissue Mobility,Strength,Tone Goals Three Impairment Pt has severe tone along right QL, paraspinals Die Barber Goal (LTG) Pt presents with tone reduced to mild, resulting in decreased scoliotic curvature and evened out shoulder height LTG Duration 08/02/21 Two Impairment Pt unable to to any activity longer than 20 minutes due to back pain Die Barber Goal (LTG) Pt to demonstrate ability to stand at sink for 40 minutes without increased back pain to allow for 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 LTG Duration 08/02/21 One Impairment Pt does not have an appropriate home exercise program Short Term Goal (STG) Pt to be independent and compliant with an appropriate HEP STG Duration 07/02/21 Assessment Summary Assessment Pt doing fairly well, will likely discharge following her next appointment, as she has a long vacation out of the country [place] next week. Physical Therapy Plan Frequency and Duration Frequency of Treatment 2x/Week Duration of Treatment Two months Plan of Care Start Date 06/01/21 Plan of Care End Date 08/02/21 Therapeutic Interventions Therapeutic Interventions Home Exercise Program,Joint Mobilizations,Manual Therapy, Patient/Caregiver Education, Self-Care/Home Management,Soft Tissue Mobilization,Taping, Therapeutic Activities, Therapeutic Exercises Modalities Cold Pack/Ice Massage,Electric Stimulation,Hot Packs, Ultrasound Next Visit Focus/Plan Next Note Type Treatment Note Next Visit Plan STM, Flexibility, Lumbar mobility
--- NOTE | 2021-07-15 12:43 | PT.OTN ---
Current Diagnoses Stiffness of other specified joint, not elsewhere classified (07/15/21) Low back pain (07/15/21) Pain in thoracic spine (07/15/21) Muscle spasm of back (07/15/21) Abnormal posture (07/15/21) Physical Therapy Treatment Note PT-OP-A Visit Information Start: 06/01/21 15:09 Freq: Status: Active Protocol: Document 07/15/21 12:00 DCW (Rec: 07/15/21 12:43 DCW [id number]) Out-Patient Physical Therapy Visit Information Visit Information Visit Type Discharge Summary Visit Start Time 12:00 Visit Stop Time 12:45 Total Visit Minutes 45 Visit Number 12 Number of CEMENTER HELPER Visits 0 Evaluation Information Evaluation Date 06/01/21 PT-OP-B Current Condition Start: 06/01/21 15:09 Freq: Status: Active Protocol: Document 06/01/21 14:30 DCW (Rec: 06/01/21 17:51 DCW [id number]) Current Condition History of Current Condition Onset Date 40+ year history Current Complaints Mid-low back pain History of Current Condition Pt is a 76 year old female presenting with a 40+ year history of low back problems, reporting an 8 month history of worsening pain a little higher than my usual pain, along the upper lumbar spine and lower thoracic, right > left. Pt notes her initial injury occurred when she was in her 30s, when she tripped and fell on a sidewalk. Reports at the time, she was having fairly severe pain for ~1 year, and was finally assessed correctly and had a surgery performed, admits it hasn't really been a problem since, other than occasional episodes of general back pain and some sciatic pain every now and then. Recently, however, she has had worsening instances of pain in her back . Notes that typically she is able to do any activity, but can only tolerating in for about 20 minutes before she needs to stop and rest and change positions to relieve some pain. Additionally, pt notes that her daughter has MS , and that she frequently has to put the wheelchair in and take it out of the car for her daughter, which she acknowledges may be at least partially to blame for some of her back pain. PT-OP-C Subjective Start: 06/01/21 15:09 Freq: Status: Active Protocol: Document 07/15/21 12:00 DCW (Rec: 07/15/21 12:43 DCW [id number]) OP-PT Subjective Patient Comments Patient Comments My back was just not really good yesterday. PT-OP-F Manual Assessment Start: 06/01/21 15:09 Freq: Status: Active Protocol: Document 06/01/21 14:30 DCW (Rec: 06/01/21 17:51 DCW [id number]) Manual Assessments Soft Tissue Assessment Soft Tissue Mobility Assessment Severe tone right QL, right thoracic and lumbar paraspinals Joint Mobility Assessment Joint Mobility Assessment Hypomobility throughout thoracic and lumbar spine PT-OP-J Posture/Palpation/Skin Start: 06/01/21 15:09 Freq: Status: Active Protocol: Document 06/01/21 14:30 DCW (Rec: 06/01/21 17:51 DCW [id number]) Posture Evaluation Position Standing Evaluation View Posterior Head/C-Spine Posture Side Bent Left T-Spine Posture Flexible Scoliosis on (R), Increased Kyphosis Scapula Posture (L) Elevated,(R) Depressed PT-OP-K Range of Motion Start: 06/01/21 15:09 Freq: Status: Active Protocol: Document 06/01/21 14:30 DCW (Rec: 06/01/21 17:51 DCW [id number]) Lumbar Spine Range of Motion Lumbar Spine Active Degrees Testing Position Standing Flexion 40 Extension 10 Lateral Flexion Left 58 Lateral Flexion Right 53 ROM Limitations Soft Tissue Tightness,Muscle Tone Comments Lateral flexion measured in cm from fingertips to floor PT-OP-L Special Tests Start: 06/01/21 15:09 Freq: Status: Active Protocol: Document 06/01/21 14:30 DCW (Rec: 06/01/21 17:51 DCW [id number]) Special Tests Lumbar Spine Special Tests Vertical Spine Loading Test Results Negative Slump Test Results Negative Compression Test Results Negative PT-OP-M Strength Start: 06/01/21 17:51 Freq: Status: Active Protocol: Document 06/01/21 14:30 DCW (Rec: 06/01/21 17:52 DCW [id number]) Trunk Strength Trunk Manual Muscle Testing Testing Position Supine Core Stabilization TrA MMT - 3-/5. Pt struggles to properly contract TrA, requires verbal and tactile cues, still very inconsistent. PT-OP-Q Treatments Start: 06/01/21 15:09 Freq: Status: Active Protocol: Document 07/15/21 12:00 DCW (Rec: 07/15/21 12:43 DCW [id number]) Gym Equipment Cable Column (Body Solid) Pallof Press Resistance 15# Therapeutic Ball 2 Exercise Details Pelvic tilts, circles Ball Size/Color Red - 55 cm Body Position Sitting 1 Exercise Details Low Trunk Rotations Ball Size/Color Blue - 45 cm Body Position Supine Therapeutic Exercises Standing Exercises 1 Standing Exercise Name Hip hiking Side bilateral Equipment Used 6 step Other Exercises 1 Other Exercise Name Resisted side-stepping Resistance Green Equipment Used T-band Manual Therapy Treatment Soft Tissue Mobilization 1 Body Location R T/L Paraspinals, QL Mobilization Type Sustained Pressure,Trigger Point Release Intensity/Depth Moderate Body Position Sidelying Manual Traction 1 Details Inferior traction of R iliac crest Body Position Sidelying PT-OP-T Assessment and Plan Start: 06/01/21 15:09 Freq: Status: Active Protocol: Document 07/15/21 12:00 DCW (Rec: 07/15/21 12:43 DCW [id number]) Physical Therapy Assessment Impairments Impairments Activity Tolerance,Functional Activities,Functional Mobility ,Pain,Posture,ROM,Soft Tissue Mobility,Strength,Tone Goals Three Impairment Pt has severe tone along right QL, paraspinals Long-Term Goal (LTG) Pt presents with tone reduced to mild, resulting in decreased scoliotic curvature and evened out shoulder height LTG Duration Met Two Impairment Pt unable to to any activity longer than 20 minutes due to back pain Plane Runner Goal (LTG) Pt to demonstrate ability to stand at sink for 40 minutes without increased back pain to allow for 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 LTG Duration 08/02/21 One Impairment Pt does not have an appropriate home exercise program Short Term Goal (STG) Pt to be independent and compliant with an appropriate HEP STG Duration Met Assessment Summary Assessment Pt will be discharged following today's visit, going on vacation for 1+ month out of the country. Pt will require a new referral in order to return to therapy if desired. Pt showing good progress overall, increased mobility and decreased tone. Physical Therapy Plan Frequency and Duration Frequency of Treatment 2x/Week Duration of Treatment Two months Plan of Care Start Date 06/01/21 Plan of Care End Date 08/02/21 Therapeutic Interventions Therapeutic Interventions Home Exercise Program,Joint Mobilizations,Manual Therapy, Patient/Caregiver Education, Self-Care/Home Management,Soft Tissue Mobilization,Taping, Therapeutic Activities, Therapeutic Exercises Modalities Cold Pack/Ice Massage,Electric Stimulation,Hot Packs, Ultrasound Discharge Physical Therapy Discharge Reasons No Longer Attending PT Next Visit Focus/Plan Next Note Type Discharge Summary
== END 2021-07-20 13:13 | disposition home or self-care (01) ==
LOC: PHYS 12:00
PROVIDERS: PCP Internal Medicine; Referring Provider Internal Medicine; Visit Provider Internal Medicine
DX: M54.5 Low back pain (principal); M54.6 Pain in thoracic spine; R29.3 Abnormal posture; M62.830 Muscle spasm of back; M25.69 Stiffness of other specified joint, not elsewhere classified
CPT/HCPCS: 97110; 97140; 97161

== ENCOUNTER 2022-06-06 15:29 | Observation (INO) | payer MEDICARE, SELFPAY ==
[2022-06-06] VITALS (8 sets, daily range): BP systolic 163–182; BP diastolic 69–103; PULSE 60–91; RESP 16–30; TEMP 36.3–36.4; O2SAT 94–98; BMI 27.0
--- NOTE | 2022-06-06 15:59 | DI.CT.S_ITS ---
PROCEDURE: CT ANGIO HEAD AND NECK INDICATIONS: lt side weakness this morning, resolved TECHNIQUE: Pre-contrast 4.5 mm thick sections acquired from the foramen magnum to the vertex. After the administration of intravenous contrast, 1 mm thick sections acquired from the aortic arch through the [place] of [place]. Post-contrast 4.5 mm thick sections then re-acquired from the foramen magnum to the vertex. 3-dimensional obkppzc-[id number]-[id number] (MIP) and/or volume rendering reformats were acquired of the central intracranial vasculature and neck separately. For radiation dose reduction, the following was used: automated exposure control, adjustment of mA and/or kV according to patient size. COMPARISON: [facility], CT, HEAD WITHOUT CONTRAST, 08/04/2016, 8:24. [facility], CT, HEAD AND NECK ANGIO, 08/04/2016, 9:36. FINDINGS: Image quality: Limited by bolus timing, with venous contamination. BRAIN: CSF spaces: Ventricles are normal in size and shape. Basal cisterns are patent. No extra-axial fluid collections. Brain: No midline shift. No intracranial bleeds or masses. Servin-white matter interface appears intact. Skull and face: Calvarium and facial bones appear intact, without suspicious lesions. Orbits appear normal. Sinuses: Highly focal left sphenoid sinus opacification is seen, with associated bony remodeling. Sinuses and mastoids are otherwise relative clear. HEAD CT ANGIOGRAPHY: Anterior circulation: Intracranial internal carotid arteries are normal in size and flow. The flow within the paired anterior cerebral arteries is normal and symmetric. The flow within the middle cerebral arteries is normal and symmetric. The anterior communicating artery is seen. No aneurysms are seen. Posterior circulation: Visualized portions of the vertebral arteries demonstrate normal caliber, and join to form a normal appearing basilar artery. Flow within the posterior cerebral arteries is normal and symmetric. No aneurysms are seen. NECK CT ANGIOGRAPHY: Carotid system: The great vessels demonstrate a conventional anatomy as they arise from the aortic arch. The origins of the common carotid arteries appear patent. The common carotid arteries demonstrate normal caliber and courses. The bifurcation regions demonstrate atherosclerotic irregularity and calcification, with a 60-70% narrowing involving the left proximal internal carotid artery and approximately 30% narrowing involving the right proximal internal artery. The more distal internal carotid arteries demonstrate normal course and caliber. Posterior circulation: The origins of the vertebral arteries both appear widely patent. The more superior extracranial portions of both vertebral arteries also demonstrate normal courses and calibers. They join to form a normal appearing basilar artery. Soft tissues: Visualized neck soft tissues demonstrate no suspicious abnormalities. Bones: No suspicious bony lesions. Visualized cervical spine appears normally aligned. Moderate cervical spine degenerative changes are seen. IMPRESSION: No significant intracranial arterial abnormality is seen. Focal calcification can be seen involving the carotid bifurcation regions, with 60-70% narrowing on the left side. If it would be helpful for clinical management decision making, please consider a dedicated, scheduled brain MRI for further evaluation (assuming that there is no contraindication). Incidental note is made of: Chronic appearing left sphenoid sinus disease. Any quantitative measurements of stenosis were performed using NASCET criteria. Dictated by: Tawanda Astorga M.D. on 06/06/2022 at 16:57 Approved by: Tawanda Astorga M.D. on 06/06/2022 at 17:02
[2022-06-06 16:30] LABS: Add Manual Diff / Slide Review NO; Basophils Absolute Auto 100 /uL (0-100); Basophils Percent Auto 1.1 % (0-2); Eosinophils Absolute Auto 100 /uL (0-450); Eosinophils Percent Auto 2.6 % (2-4); Hematocrit 42.4 % (36-46); Hemoglobin 14.5 g/dL (12.0-16.0); Lymphocytes Absolute Auto 700 /uL (1100-4500); Lymphocytes Percent Auto 12.2 % (25-40); Mean Corpuscular HGB Conc 34.2 % (30-36); Mean Corpuscular Hemoglobin 28.6 PG (26-34); Mean Corpuscular Volume 83.8 fL (80-100); Monocytes Absolute Auto 700 /uL (0-900); Monocytes Percent Auto 12.2 % (3-14); Neutrophils Absolute Auto 4000 /uL (1500-7000); Neutrophils Percent Auto 71.9 % (50-75); Platelet Count 263 X10^3/uL (150-400); Red Blood Cell Count 5.06 X10^6/uL (4.0-5.2); Red Cell Distribution Width 15.1 % (11.6-14.8); White Blood Cell Count 5.5 X10^3/uL (4.5-11.0)
--- NOTE | 2022-06-06 16:47 | PC.NURSE ---
Pt reports left sided weakness of arm and leg that began at 1000 this am and resolved within 15 minutes. Pt reports the weakness first resolved in the left leg then arm. She reports a hx of hypertension. Call light within reach. Encouraged to call if any new or worsening symptoms.
[2022-06-06 16:48] LABS: Alanine Aminotransferase 15 IU/L (<35); Albumin 4.1 g/dL (3.5-5.0); Albumin Globulin Ratio 1.3 (1.0-2.8); Alkaline Phosphatase 104 U/L (38-126); Aspartate Aminotransferase 27 IU/L (14-36); BUN Creatinine Ratio 18.3 (6-22); Bilirubin Total 0.9 mg/dL (0.2-1.3); Blood Urea Nitrogen 13 mg/dL (7-17); Calcium 8.5 mg/dL (8.4-10.2); Carbon Dioxide 34 mmol/L (22-32); Chloride 100 mmol/L (98-107); Estimated Glomerular Filt Rate > 60 mL/min (>60); Globulin 3.2 g/dL (1.7-4.1); Glucose 92 mg/dL (80-110); HEMOLYSIS < 15 (0-50); Potassium 3.3 mmol/L (3.4-5.1); Sodium 139 mmol/L (137-145); Total Protein 7.3 g/dL (6.3-8.2)
--- NOTE | 2022-06-06 18:31 | ED.NEUROSD ---
HPI - Neuro Symptoms/Deficit General Chief Complaint: Neuro Symptoms/Deficit Stated Complaint: LEFT LEG AND ARM NUMBNESS Time Seen by Provider: 06/06/22 18:24 Source: patient Mode of arrival: Ambulatory History of Present Illness HPI Narrative: 77F nonsmoker with history of hypertension, hyperlipidemia, and hypothyroid presents for evaluation of neurologic symptoms that had started at 1000. She went to bed in her normal state of health and awoke feeling fine, but at 1000 she had a fifteen minute episode of left upper and lower extremity numbness, tingling and weakness. Denies any other symptoms such as headache, dizziness, weakness or lightheadedness. She is not having chest pain, palpitations On Anticoagulants: No Related Data Previous Rx's Medication Instructions Recorded atorvastatin 10 mg tablet (Lipitor) 10 mg PO HS #90 tabs 02/04/18 hydrochlorothiazide 25 mg tablet 25 mg OR QDAY #90 tabs 02/04/18 levothyroxine 88 mcg tablet 0.088 mg PO QAM #90 tabs 02/04/18 metoprolol tartrate 50 mg tablet 50 mg PO QDAY #90 tabs 02/04/18 potassium chloride 10 mEq 10 meq PO TIDCC #270 tabs 02/04/18 tablet,extended release (Klor-Con) Allergies Allergy/AdvReac Type Severity Reaction Status Date / Time Sulfa (Sulfonamide Allergy Mild RASH Verified 02/15/19 10:11 Antibiotics) tetracycline AdvReac Mild HYPOTENSION Verified 02/15/19 10:11 Review of Systems Hematologic/Lymphatic On Anticoagulants: No Patient History Surgical History (Updated 03/19/18 @ 05:21 by Conversion Provider) Status post cholecystectomy Family History (Updated 04/11/15 @ 00:00 by Conversion Provider) Brother Age: 69 Hypertension Father Heart disease High cholesterol Stroke Grandfather Stroke Mother Cancer Social History Smoking Status: Never smoker Smoking Status: Never smoker alcohol intake frequency: holidays/special occasions only Exam Narrative Exam Narrative: GENERAL: [77] year old patient appears stated age. Well-developed patient, in mild distress. HEAD: Atraumatic. Normocephalic. EYES: Pupils equal round and reactive. Extraocular motions intact. No scleral icterus. No injection or drainage. ENT: Nose without bleeding, purulent drainage. Throat without erythema, tonsillar hypertrophy or exudate. Airway patent. NECK: Trachea midline. Non tender CARDIOVASCULAR: Regular rate and rhythm without murmurs, gallops, or rubs. RESPIRATORY: Clear to auscultation. Breath sounds equal bilaterally. No wheezes, rales, or rhonchi. GASTROINTESTINAL: Abdomen soft, non-tender, nondistended. EXTREMITIES: No edema or joint tenderness. BACK: Nontender without deformity or crepitance. No flank tenderness. NEURO: AOx3. SKIN: No rash or erythema of visible areas Initial Vital Signs Initial Vital Signs: Vital Signs Temperature 97.4 F L 06/06/22 15:32 Pulse Rate 71 06/06/22 15:32 Respiratory Rate 18 06/06/22 15:32 Blood Pressure 163/69 H 06/06/22 15:32 Pulse Oximetry 98 06/06/22 15:32 Oxygen Delivery Method 06/06/22 15:32 Scores NIH Stroke Scale Level of Conciousness: Alert, keenly responsive Ask month/age: Answers both questions correctly. Open/close eyes, close hand: Performs both tasks correctly Best gaze horizontal: Normal Visual blackmon: No visual loss Facial palsy: Normal symetrical movement Left arm drift: No drift for full 10 sec Right arm drift: No drift for full 10 sec Left leg drift: No drift for full 5 sec Right leg drift: No drift for full 5 sec Limb ataxia: Absent Sensory on face/arms/legs: Normal, no sensory loss Best language: No aphasia, normal Dysarthria: Normal Extinction or inattention: No abnormality Total NIH Stroke scale score: 0 Course Orders Ordered: ED Orders 06/06/22 15:59 CT angio head and neck Stat 06/06/22 16:18 Complete Blood Count AUTO DIFF Stat Comprehensive Metabolic Panel Stat EKG-12 Lead Stat Sodium Chloride (Normal Saline 0.9%) 1,000 mls @ 125 mls/hr IV CONT JUAN JOSÉ Discontinued Medications Aspirin (Aspirin 81 Mg Chew Tab) 324 mg PO NOW ONE Stop: 06/06/22 18:44 Last Admin: 06/06/22 18:49 Dose: 324 mg Documented By: TAYLOR Vital Signs Vital signs: Vital Signs - 8 hr 06/06/22 15:32 06/06/22 16:56 Temperature 97.4 F L Pulse Rate 71 62 Respiratory Rate 18 20 Blood Pressure 163/69 H 177/103 H Pulse Oximetry 98 94 Oxygen Delivery Method Room Air Room Air MDM - Neuro Symptoms/Deficit Lab Data Result diagrams: 06/06/22 16:18 06/06/22 16:18 Labs: Lab Results 06/06/22 06/06/22 Range/Units 16:18 16:18 WBC 5.5 (4.5-11.0) X10^3/uL RBC 5.06 (4.0-5.2) X10^6/uL Hgb 14.5 (12.0-16.0) g/dL Hct 42.4 (36-46) % MCV 83.8 (80-100) fL MCH 28.6 (26-34) PG MCHC 34.2 (30-36) % RDW 15.1 H (11.6-14.8) % Plt Count 263 (150-400) X10^3/uL Neut % (Auto) 71.9 (50-75) % Lymph % (Auto) 12.2 L (25-40) % [place] % (Auto) 12.2 (3-14) % Eos % (Auto) 2.6 (2-4) % Baso % (Auto) 1.1 (0-2) % Neut # (Auto) 4000 (1998-0845) /uL Lymph # (Auto) 700 L (6984-1444) /uL [place] # (Auto) 700 (0-900) /uL Eos # (Auto) 100 (0-450) /uL Baso # (Auto) 100 (0-100) /uL Sodium 139 (137-145) mmol/L Potassium 3.3 L (3.4-5.1) mmol/L Chloride 100 (98-107) mmol/L Carbon Dioxide 34 H (22-32) mmol/L BUN 13 (7-17) mg/dL Creatinine 0.71 (0.52-1.04) mg/dL Estimated GFR > 60 (>60) mL/min BUN/Creatinine Ratio 18.3 (6-22) Glucose 92 (80-110) mg/dL Calcium 8.5 (8.4-10.2) mg/dL Total Bilirubin 0.9 (0.2-1.3) mg/dL AST 27 (14-36) IU/L ALT 15 (<35) IU/L Alkaline Phosphatase 104 (38-126) U/L Total Protein 7.3 (6.3-8.2) g/dL Albumin 4.1 (3.5-5.0) g/dL Globulin 3.2 (1.7-4.1) g/dL Albumin/Globulin Ratio 1.3 (1.0-2.8) Imaging Data CTA - brain/neck: Radiologist's Impression: [address] [address] [address] Scan Report Signed Patient: Gilma Watts I MR#: [id number] : 1945 Acct:[id number] Age/Sex: 77 / F Date of Service: 06/06/22 Loc: ED Accession Number: [id number] ?? Procedure: CT angio head and neck Ordering Provider: Ernesto Perez MD PROCEDURE:? CT ANGIO HEAD AND NECK ? INDICATIONS:? lt side weakness this morning, resolved ? TECHNIQUE:? Pre-contrast 4.5 mm thick sections acquired from the foramen magnum to the vertex.? After the administration of intravenous contrast, 1 mm thick sections acquired from the aortic arch through the [place] of [place].? Post-contrast 4.5 mm thick sections then re-acquired from the foramen magnum to the vertex.? 3-dimensional zfcvjuw-xiamkteaj-mdwlmnqzsb (MIP) and/or volume rendering reformats were acquired of the central intracranial vasculature and neck separately. For radiation dose reduction, the following was used:? automated exposure control, adjustment of mA and/or kV according to patient size.? ? COMPARISON:? [facility], CT, HEAD WITHOUT CONTRAST, 08/04/2016, 8:24.? [facility], CT, HEAD AND NECK ANGIO, 08/04/2016, 9:36. ? FINDINGS:? Image quality:? Limited by bolus timing, with venous contamination. ? BRAIN:? CSF spaces:? Ventricles are normal in size and shape.? Basal cisterns are patent.? No extra-axial fluid collections.? ? Brain:? No midline shift.? No intracranial bleeds or masses.? Servin-white matter interface appears intact.? ? Skull and face:? Calvarium and facial bones appear intact, without suspicious lesions.? Orbits appear normal.? ? Sinuses:? Highly focal left sphenoid sinus opacification is seen, with associated bony remodeling.? Sinuses and mastoids are otherwise relative clear.? ? HEAD CT ANGIOGRAPHY:? Anterior circulation:? Intracranial internal carotid arteries are normal in size and flow.? The flow within the paired anterior cerebral arteries is normal and symmetric.? The flow within the middle cerebral arteries is normal and symmetric.? The anterior communicating artery is seen.? No aneurysms are seen.? ? Posterior circulation:? Visualized portions of the vertebral arteries demonstrate normal caliber, and join to form a normal appearing basilar artery.? Flow within the posterior cerebral arteries is normal and symmetric.? No aneurysms are seen.? ? NECK CT ANGIOGRAPHY:? Carotid system:? The great vessels demonstrate a conventional anatomy as they arise from the aortic arch.? The origins of the common carotid arteries appear patent.? The common carotid arteries demonstrate normal caliber and courses.? The bifurcation regions demonstrate atherosclerotic irregularity and calcification, with a 60-70% narrowing involving the left proximal internal carotid artery and approximately 30% narrowing involving the right proximal internal artery. The more distal internal carotid arteries demonstrate normal course and caliber.? ? Posterior circulation:? The origins of the vertebral arteries both appear widely patent.? The more superior extracranial portions of both vertebral arteries also demonstrate normal courses and calibers.? They join to form a normal appearing basilar artery.? ? Soft tissues:? Visualized neck soft tissues demonstrate no suspicious abnormalities.? ? Bones:? No suspicious bony lesions.? Visualized cervical spine appears normally aligned.? Moderate cervical spine degenerative changes are seen. ? ? IMPRESSION:? No significant intracranial arterial abnormality is seen.? ? Focal calcification can be seen involving the carotid bifurcation regions, with 60-70% narrowing on the left side. ? If it would be helpful for clinical management decision making, please consider a dedicated, scheduled brain MRI for further evaluation (assuming that there is no contraindication).? ? ? Incidental note is made of: Chronic appearing left sphenoid sinus disease. ? Any quantitative measurements of stenosis were performed using NASCET criteria.? ? ? Dictated by: Tawanda Astorga M.D. on 06/06/2022 at 16:57 ? ? Approved by: Tawanda Astorga M.D. on 06/06/2022 at 17:02 ? Discharge Plan Departure Patient Disposition: Admitted as Observation Clinical Impression: Brain TIA
[2022-06-06] MEDS: ASPIRIN 81 MG CHEW TAB 324 MG PO (18:49)
[2022-06-06] MEDS: SODIUM CHLORIDE 0.9% 1,000 ML 125 ML IV (20:03)
[2022-06-06 20:31] LABS: COVID19 -Nasal RAPID Negative (Negative)
--- NOTE | 2022-06-06 21:10 | DI.ECHO.S_ITS ---
[facility] +---------+ [facility] +---------+ : : [address] : : : : [id number] : : : : Phone: [phone] Echocardiogram Report + + :Name: DEANA EGAN I Study Date: 06/07/2022 Height: 64 in : :[facility] ReadingLocation: Weight: 157 lb : : Gender: Female BSA: 1.8 m2 : :: 1945 Age: 77 yrs BP: 175/77 mmHg: :Reason For Study: ASSESS CARDIAC FUNCTION : :Ordering Physician: ADALGISA, : :SHUBHAM Performed By: Jessica Munson : :Referring: SHUBHAM DIANA : + + Interpretation Summary The ejection fraction is estimated to be 55-60%. There is moderate mitral regurgitation. The mitral regurgitant jet is eccentrically directed. The mitral valve leaflets are mildly calcified. The aortic valve is mildly calcified. There is mild aortic regurgitation. Procedure: A two-dimensional transthoracic echocardiogram with color flow and Doppler was performed. The study quality was technically adequate. Comparison is made with the echocardiogram of 03/20/2012. The patient was in sinus rhythm with heart rates between 59-62 bpm during the exam. Left Ventricle: Proximal septal thickening is noted. There is normal left ventricular wall thickness. The ejection fraction is estimated to be 55-60%. Left ventricular wall motion is normal. Right Ventricle: The right ventricle is normal in size and function. Atria: The left atrial size is normal. Right atrial size is normal. There is no Doppler evidence for an interatrial shunt. Mitral Valve: The mitral valve leaflets are mildly calcified. The mitral valve chordae are thickened and/or calcified. There is moderate mitral regurgitation. The mitral regurgitant jet is eccentrically directed. Compared to the prior echo study, there has been an increase in the severity of mitral regurgitation. Aortic Valve: The aortic valve is trileaflet. The aortic valve is mildly calcified. The aortic valve opens well. There is no aortic valve stenosis. There is mild aortic regurgitation. Tricuspid Valve: The tricuspid valve is normal in structure and function. There is trace tricuspid regurgitation. Pulmonic Valve: The pulmonic valve leaflets are thin and pliable; valve motion is normal. There is mild pulmonic regurgitation. Great Vessels: The aortic root is normal size. The dimensions of the ascending aorta are normal. The IVC is of normal diameter and collapses greater than 50% with a sniff. This suggests a low right atrial pressure of 3 mm Hg. Pericardium/ Pleura There is no pericardial effusion. There is no pleural effusion. MMode/2D Measurements & Calculations LVIDd: 4.3 cm LVOT diam: 1.9 cm LVIDs: 2.6 cm Ao root diam: 3.1 cm FS: 39.3 % asc Aorta Diam: 3.7 cm EPSS: 0.88 cm Ao Arch Diam (Prox Trans): 3.4 cm IVSd: 0.83 cm LVPWd: 0.83 cm LV yu. diameter/BSA (cm/m^2): 2.5 LV sys. diameter/BSA (cm/m^2): 1.5 LA A2 area: 21.4 cm2 RA long axis: 4.9 cm LA A4 area: 24.7 cm2 RA area: 16.2 cm2 LA length (vol): 6.2 cm RA vol: 45.2 ml LA vol: 72.7 ml RA : 25.6 ml/m2 LA vol index: 41.2 ml/m2 IVC diam: 1.5 cm RVD1 (basal): 3.3 cm RVD2 (mid): 2.9 cm TAPSE: 2.0 cm Doppler Measurements & Calculations Ao V2 max: 115.9 cm/sec LVOT Max [place]: 101.1 cm/sec Ao V2 mean: 88.0 cm/sec LV V1 max P.1 mmHg Ao max P.4 mmHg LV V1 VTI: 24.3 cm Ao mean P.4 mmHg ERICA(I,D): 2.3 cm2 Ao V2 VTI: 30.2 cm ERICA(V,D): 2.4 cm2 sev ratio: 0.81 ERICA indexed to BSA (cm^2/m^2): 1.3 AI P1/2t: 603.1 msec AI dec slope: 209.4 cm/sec2 MV E max linwood: 107.3 cm/sec PA V2 max: 79.4 cm/sec MV A max linwood: 67.0 cm/sec PA V2 mean: 57.2 cm/sec MV E/A: 1.6 PA mean P.5 mmHg Med Peak E' Linwood: 5.4 cm/sec PA Accel Time: 0.11 sec E/E' med: 20.0 Lat Peak E' Linwood: 6.9 cm/sec E/E' lat: 15.4 E/e' average: 17.7 MV dec time: 0.22 sec SV(LVOT): 68.3 ml Reading Physician:01:56 PM
--- NOTE | 2022-06-06 21:11 | DI.MRI.S_ITS ---
PROCEDURE: MR HEAD/BRAIN WO CON INDICATIONS: R/O stroke TECHNIQUE: Non-contrast axial T1 spin echo, axial T2 fast spin echo, sagittal and axial FLAIR, coronal T2 fast spin echo, axial gradient echo, axial diffusion and ADC through the brain. COMPARISON: [facility], CT, CT ANGIO HEAD AND NECK, 06/06/2022, 16:55. FINDINGS: Image quality: Excellent. CSF spaces: Ventricles appear symmetric in size and shape. Basal cisterns are patent. No extra-axial fluid collections. Brain: No intracranial bleeds or mass effects. There is cerebral volume loss for age. There are periventricular and deep white matter chronic small vessel ischemic changes. Brainstem appears normal. Diffusion-weighted images show no acute ischemic insults. No chronic ischemic insults. Normal intravascular flow voids are present. Skull and face: Calvarial bone marrow is normal in signal. Orbits are normal. Sinuses: Mild mucosal thickening within the left posterior ethmoid air cells. Complete opacification of the left sphenoid sinus. Sinuses and mastoids are otherwise clear. IMPRESSION: 1. Mild volume loss. Minimal small vessel ischemic disease. 2. No acute process. No recent infarct. 3. Sinus disease. Dictated by: Tiffany Cordova M.D. on 06/07/2022 at 8:53 Approved by: Tiffany Cordova M.D. on 06/07/2022 at 8:54
--- NOTE | 2022-06-06 21:14 | DI.US.S_ITS ---
PROCEDURE: US CAROTID DOPPLER BI INDICATIONS: stroke symptoms TECHNIQUE: Color and pulse Doppler interrogation was performed of both carotid systems, with image documentation and velocity measurements. COMPARISON: [facility], , CAROTID DOPPLER BI, 09/16/2019, 10:02. FINDINGS: Stenosis calculations are based on SRU (Society of Radiologists in Ultrasound) criteria. Right side: Common carotid artery peak systolic velocity: 61 cm/sec. Internal carotid artery peak systolic velocity: 118 cm/sec. Internal carotid artery end diastolic velocity: 25 cm/sec. External carotid artery peak systolic velocity: 112 cm/sec. ICA/CCA peak systolic ratio: 1.9 . Servin scale imaging description: Mild plaque in the proximal ICA/bulb Percent internal carotid artery stenosis: Less than 50 percent . Vertebral artery: Flow direction is antegrade. Left side: Common carotid artery peak systolic velocity: 75 cm/sec. Internal carotid artery peak systolic velocity: 58 cm/sec. Internal carotid artery end diastolic velocity: 15 cm/sec. External carotid artery peak systolic velocity: 90 cm/sec. ICA/CCA peak systolic ratio: 0.78 . Servin scale imaging description: Mild plaque in the proximal ICA/bulb Percent internal carotid artery stenosis: Less than 50 percent . Vertebral artery: Flow direction is antegrade. IMPRESSION: Mild plaque in the proximal ICA/bulbs bilaterally with no significant stenosis identified by imaging or velocity/ratio criteria. Dictated by: Narendra Lo M.D. on 06/07/2022 at 11:09 Approved by: Narendra Lo M.D. on 06/07/2022 at 11:13
[2022-06-06] MEDS: POTASSIUM CHLORIDE 10 MEQ TAB PO (22:44)
[2022-06-06] MEDS: ATORVASTATIN 20 MG TABLET 10 MG PO (22:45)
[2022-06-06] MEDS: METOPROLOL IR 50 MG TABLET PO (22:45)
[2022-06-07 00:50] VITALS: BP 134/65; PULSE 67; RESP 18; TEMP 36.6; O2SAT 97
[2022-06-07 04:00] VITALS: BP 137/63; PULSE 68; RESP 18; TEMP 36.5; O2SAT 94
[2022-06-07 06:24] LABS: Add Manual Diff / Slide Review NO; Basophils Absolute Auto 0 /uL (0-100); Basophils Percent Auto 0.7 % (0-2); Eosinophils Absolute Auto 200 /uL (0-450); Eosinophils Percent Auto 3.7 % (2-4); Hematocrit 40.7 % (36-46); Hemoglobin 13.7 g/dL (12.0-16.0); Lymphocytes Absolute Auto 700 /uL (1100-4500); Lymphocytes Percent Auto 12.2 % (25-40); Mean Corpuscular HGB Conc 33.6 % (30-36); Mean Corpuscular Hemoglobin 28.3 PG (26-34); Mean Corpuscular Volume 84.3 fL (80-100); Monocytes Absolute Auto 700 /uL (0-900); Monocytes Percent Auto 13.1 % (3-14); Neutrophils Absolute Auto 3900 /uL (1500-7000); Neutrophils Percent Auto 70.3 % (50-75); Platelet Count 238 X10^3/uL (150-400); Red Blood Cell Count 4.83 X10^6/uL (4.0-5.2); Red Cell Distribution Width 14.9 % (11.6-14.8); White Blood Cell Count 5.5 X10^3/uL (4.5-11.0)
[2022-06-07 06:37] LABS: Alanine Aminotransferase 13 IU/L (<35); Albumin 3.5 g/dL (3.5-5.0); Albumin Globulin Ratio 1.3 (1.0-2.8); Alkaline Phosphatase 92 U/L (38-126); Aspartate Aminotransferase 24 IU/L (14-36); BUN Creatinine Ratio 19.4 (6-22); Blood Urea Nitrogen 14 mg/dL (7-17); Calcium 8.3 mg/dL (8.4-10.2); Carbon Dioxide 31 mmol/L (22-32); Chloride 101 mmol/L (98-107); Estimated Glomerular Filt Rate > 60 mL/min (>60); Globulin 2.8 g/dL (1.7-4.1); Glucose 93 mg/dL (80-110); HEMOLYSIS < 15 (0-50); Potassium 3.3 mmol/L (3.4-5.1); Sodium 137 mmol/L (137-145); Total Protein 6.3 g/dL (6.3-8.2)
[2022-06-07 08:00] VITALS: BP 135/63; PULSE 67; RESP 16; TEMP 36.3; O2SAT 98
[2022-06-07] MEDS: METOPROLOL IR 50 MG TABLET PO (08:29)
[2022-06-07] MEDS: POTASSIUM CHLORIDE 10 MEQ TAB PO ×2 (08:29→13:31)
[2022-06-07] MEDS: LEVOTHYROXINE 88 MCG TABLET PO (08:36)
[2022-06-07 11:56] VITALS: BP 127/51; PULSE 61; RESP 16; TEMP 36.4; O2SAT 96
--- NOTE | 2022-06-07 13:41 | PM.HP.1 ---
History of Present Illness History of Present Illness Date Patient Seen: 06/07/22 Time Patient Seen: 13:41 Date of Onset of Symptoms: 06/06/22 Chief complaint: LEFT LEG AND ARM NUMBNESS Narrative: This is a very pleasant patient of air in [facility] who has hyperlipidemia hypertension hypothyroidism who presents emergency department for 15 minute history of left upper extremity and lower extremity numbness that spontaneously resolved. Patient was evaluated in the ER suspected to have a TIA with negative CT angiogram of the head and neck and was admitted to the hospital for further monitoring and workup. Patient was placed on telemetry overnight and had no arrhythmia. Patient's blood pressure was quite high when she came into the ER but this then gradually resume to normal without treatment. She was given metoprolol last night for which she takes daily 50 mg. Her hydrochlorothiazide was held. The patient was otherwise in her usual state of health without any other complaints. She denied any dysarthria or difficulty with speech or difficulty finding words or cognition problems. She denied any motor or strength problems. She states it started initially with feeling that her left foot felt slippery. It started when she was walking around her car to get in because she was taking a friend to coffee. They drove to the [place] and then she felt like she could not go in because of the numbness in her left arm and that is when they called 911. Initially she declined going in and called our office later in we instructed her to go to the ER. Patient denies fever, chills, rashes, recent illness. Patient denies any chest pain or lightheadedness or dizziness. Patient denies any palpitations. Patient denies any urinary symptoms. Past medical history: Hypertension Hyperlipidemia Hypothyroidism Obstructive sleep apnea Low back pain Medications: Potassium chloride 10 mEq 1 tablet 3 times a day Hydrochlorothiazide 25 mg daily Metoprolol succinate 50 mg daily Levothyroxine 88 mcg daily Atorvastatin 10 mg daily Allergies: Sulfa and tetracycline and penicillin Past surgical history Previous back surgery Tonsillectomy Cholecystectomy Family history: Father at 86 from heart disease, stroke, deafness, hyperlipidemia Mother at 62 from leukemia and also had hypertension Patient has 3 siblings they are all alive but has heart disease; 1 of her brothers has hypertension Maternal grandfather from a stroke Paternal grandfather from a stroke, unknown age Social history: Patient is she is been for 42 years. Her is 90. They live together here in [facility]. Her recently had a stroke. 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 They are scheduled for a trip to [place]. Patient has 1 daughter named Georgette Health related behavior Patient does not smoke and never has Patient does not use any alcohol or illicit street drugs Twelve point review of systems is negative other than HPI Patient History Surgical History (Updated 03/19/18 @ 05:21 by Conversion Provider) Status post cholecystectomy Family & Social History Family History (Updated 04/11/15 @ 00:00 by Conversion Provider) Brother Age: 69 Hypertension Father Heart disease High cholesterol Stroke Grandfather Stroke Mother Cancer Social History: household members spouse Prior Living Arrangements House Safety & Behavioral: Feels Safe in Current Yes Environment Been Physically Hurt or No Threatened By a Person Tobacco & Substance use: Smoking Status Never smoker alcohol intake current alcohol intake frequency holiday/special occasion Substance Use Type does not use Meds Home Medications and Allergies Home Medications Medication Instructions Recorded Confirmed Type atorvastatin 10 mg tablet (Lipitor) 10 mg PO HS #90 tabs 02/04/18 06/06/22 Rx hydrochlorothiazide 25 mg tablet 25 mg OR QDAY #90 tabs 02/04/18 06/06/22 Rx levothyroxine 88 mcg tablet 0.088 mg PO QAM #90 tabs 02/04/18 06/06/22 Rx metoprolol tartrate 50 mg tablet 50 mg PO QDAY #90 tabs 02/04/18 06/06/22 Rx potassium chloride 10 mEq 10 meq PO TIDCC #270 tabs 02/04/18 06/06/22 Rx tablet,extended release (Klor-Con) B12 1 tab PO DAILY 06/06/22 06/06/22 History aspirin 81 mg capsule 81 mg PO DAILY #30 caps 06/07/22 Rx Allergies Allergy/AdvReac Type Severity Reaction Status Date / Time Sulfa (Sulfonamide Allergy Mild RASH Verified 02/15/19 10:11 Antibiotics) tetracycline AdvReac Mild HYPOTENSION Verified 02/15/19 10:11 Exam Vital Signs (past 8 hours): - 06/07/22 08:00 06/07/22 11:56 Temperature 97.4 F L 97.5 F L Pulse Rate 67 61 Respiratory Rate 16 16 Blood Pressure 135/63 127/51 L Pulse Oximetry 98 96 Oxygen Flow Rate 0 0 Oxygen Delivery Method Room Air Oxygen Flow Rate 0 Narrative Exam Narrative: HEENT is unremarkable Neck: Supple without adenopathy, thyromegaly, jugular venous distention or bruits Chest: Clear to auscultation without wheezes rhonchi or crackles Cor: Regular rate and rhythm without a murmur Abdomen: Positive bowel sounds, soft, nontender, nondistended Extremities no edema, pulses intact Skin no rashes Neurologic exam shows cranial nerves 2-12 are grossly intact. Bilateral upper and lower extremities show strength and sensation intact. DTRs intact. Neurologic exam is nonfocal Objective Labs Result Diagrams: 06/07/22 06:10 06/07/22 06:10 Labs: Laboratory Results - last 24 hr 06/06/22 06/06/22 06/06/22 16:18 16:18 20:08 WBC 5.5 RBC 5.06 Hgb 14.5 Hct 42.4 MCV 83.8 MCH 28.6 MCHC 34.2 RDW 15.1 H Plt Count 263 Neut % (Auto) 71.9 Lymph % (Auto) 12.2 L Arch[place] % (Auto) 12.2 Eos % (Auto) 2.6 Baso % (Auto) 1.1 Neut # (Auto) 4000 Lymph # (Auto) 700 L [place] # (Auto) 700 Eos # (Auto) 100 Baso # (Auto) 100 Sodium 139 Potassium 3.3 L Chloride 100 Carbon Dioxide 34 H BUN 13 Creatinine 0.71 Estimated GFR > 60 BUN/Creatinine Ratio 18.3 Glucose 92 Calcium 8.5 Total Bilirubin 0.9 AST 27 ALT 15 Alkaline Phosphatase 104 Total Protein 7.3 Albumin 4.1 Globulin 3.2 Albumin/Globulin Ratio 1.3 SARS-CoV-2 (PCR) Negative 06/07/22 06/07/22 06:10 06:10 WBC 5.5 RBC 4.83 Hgb 13.7 Hct 40.7 MCV 84.3 MCH 28.3 MCHC 33.6 RDW 14.9 H Plt Count 238 Neut % (Auto) 70.3 Lymph % (Auto) 12.2 L [place] % (Auto) 13.1 Eos % (Auto) 3.7 Baso % (Auto) 0.7 Neut # (Auto) 3900 Lymph # (Auto) 700 L [place] # (Auto) 700 Eos # (Auto) 200 Baso # (Auto) 0 Sodium 137 Potassium 3.3 L Chloride 101 Carbon Dioxide 31 BUN 14 Creatinine 0.72 Estimated GFR > 60 BUN/Creatinine Ratio 19.4 Glucose 93 Calcium 8.3 L Total Bilirubin 1.0 AST 24 ALT 13 Alkaline Phosphatase 92 Total Protein 6.3 Albumin 3.5 Globulin 2.8 Albumin/Globulin Ratio 1.3 SARS-CoV-2 (PCR) Assessment & Plan Assessment & Plan narrative: Very pleasant 77-year-old female with hypertension, hyperlipidemia and hypothyroidism with spontaneously resolving, brief TIA. No further symptoms. Assessment 1. TIA. Reviewed workup including CT of her head, CT angiogram of the neck and head, MRI stroke protocol, revealing 60-70% stenosis on the left internal carotid on the CT angiogram of the neck but normal Doppler of the neck and reviewed this with radiologist as well. Remainder of evaluation was unremarkable other than possible left-sided sinus disease. Showed some inflammation of her sinuses. No obvious evidence of infection but this may warrant need for review with ENT. Her echo is still pending. Plan: Will discharge to home. Will continue with same antihypertensives. We will add baby aspirin. We will continue on a tore vastatin. Her lipids from April were at goal. She will follow-up with her primary care provider next week. Will refer to [facility] at that time for evaluation and follow-up of her left carotid stenosis in the inconclusive results. Likely they will follow. We will continue with risk reduction with antihypertensives and atorvastatin. We may want to push the dose further. At this point patient was to hold off. She understands that the left-sided stenosis would unlikely account for her symptoms however is still warrants further workup. She understands again in immediately she should she have recurrence Assessment 2. Hypertension, appears well-controlled Plan: Will discharge home on baby aspirin, hydrochlorothiazide and metoprolol. May want to take her off the hydrochlorothiazide due to her hypokalemia may be want to put her on an Edu or an Arb. I will leave this up to her primary care provider. Assessment 3. Hyperlipidemia Plan: Continue atorvastatin as outpatient Assessment 4. Hypothyroidism Plan: Continue with same outpatient thyroid medication. A total of 70 minutes was spent with patient in counseling and coordination of care, meeting with patient discussing with Radiology and nursing staff and formulating a plan and documentation. Time Spent With Patient Critical Care time: I spent a total of [] minutes of critical care time on this patient's care today; this time is exclusive of procedural time. Quality VTE Deep Vein Thrombosis/Pulmonary Embolism Present on Admission: No
--- NOTE | 2022-06-07 13:52 | P.DS_ITS ---
History of Present Illness History of Present Illness Chief complaint: LEFT LEG AND ARM NUMBNESS Narrative: This is a very pleasant patient of air in [facility] who has hyperlipidemia hypertension hypothyroidism who presents emergency department for 15 minute history of left upper extremity and lower extremity numbness that spontaneously resolved. Patient was evaluated in the ER suspected to have a TIA with negative CT angiogram of the head and neck and was admitted to the hospital for further monitoring and workup. Patient was placed on telemetry overnight and had no arrhythmia. Patient's blood pressure was quite high when she came into the ER but this then gradually resume to normal without treatment. She was given metoprolol last night for which she takes daily 50 mg. Her hydrochlorothiazide was held. The patient was otherwise in her usual state of health without any other complaints. She denied any dysarthria or difficulty with speech or difficulty finding words or cognition problems. She denied any motor or strength problems. She states it started initially with feeling that her left foot felt slippery. It started when she was walking around her car to get in because she was taking a friend to coffee. They drove to the [place] and then she felt like she could not go in because of the numbness in her left arm and that is when they called 911. Initially she declined going in and called our office later in we instructed her to go to the ER. Patient denies fever, chills, rashes, recent illness. Patient denies any chest pain or lightheadedness or dizziness. Patient denies any palpitations. Patient denies any urinary symptoms. Past medical history: Hypertension Hyperlipidemia Hypothyroidism Obstructive sleep apnea Low back pain Medications: Potassium chloride 10 mEq 1 tablet 3 times a day Hydrochlorothiazide 25 mg daily Metoprolol succinate 50 mg daily Levothyroxine 88 mcg daily Atorvastatin 10 mg daily Allergies: Sulfa and tetracycline and penicillin Past surgical history Previous back surgery Tonsillectomy Cholecystectomy Family history: Father at 86 from heart disease, stroke, deafness, hyperlipidemia Mother at 62 from leukemia and also had hypertension Patient has 3 siblings they are all alive but has heart disease; 1 of her brothers has hypertension Maternal grandfather from a stroke Paternal grandfather from a stroke, unknown age Social history: Patient is she is been for 42 years. Her is 90. They l ananth together here in and [place]. Her recently had a stroke. 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 They are scheduled for a trip to [place]. Patient has 1 daughter named Georgette Health related behavior Patient does not smoke and never has Patient does not use any alcohol or illicit street drugs Twelve point review of systems is negative other than HPI Discharge Providers Provider Date of admission: 06/06/22 19:51 Discharge Date: 06/07/22 Primary care physician: RO Cleaning Discharge provider: Juliana Julian MD Summary Hospital Course Discharge Diagnosis: Assessment 1. TIA. Reviewed workup including CT of her head, CT angiogram of the neck and head, MRI stroke protocol, revealing 60-70% stenosis on the left internal carotid on the CT angiogram of the neck but normal Doppler of the neck and reviewed this with radiologist as well. Remainder of evaluation was unremarkable other than possible left-sided sinus disease. Showed some inflammation of her sinuses. No obvious evidence of infection but this may warrant need for review with ENT. Her echo is still pending. Plan: Will discharge to home. Will continue with same antihypertensives. We will add baby aspirin. We will continue on a tore vastatin. Her lipids from April were at goal. She will follow-up with her primary care provider next week. Will refer to [facility] at that time for evaluation and follow-up of her left carotid stenosis in the inconclusive results. Likely they will follow. We will continue with risk reduction with antihypertensives and atorvastatin. We may want to push the dose further. At this point patient was to hold off. She understands that the left-sided stenosis would unlikely account for her symptoms however is still warrants further workup. She understands again in immediately she should she have recurrence Assessment 2. Hypertension, appears well-controlled Plan: Will discharge home on baby aspirin, hydrochlorothiazide and metoprolol. May want to take her off the hydrochlorothiazide due to her hypokalemia may be want to put her on an Edu or an Arb. I will leave this up to her primary care provider. Assessment 3. Hyperlipidemia Plan: Continue atorvastatin as outpatient Assessment 4. Hypothyroidism Plan: Continue with same outpatient thyroid medication. Hospital Course: Patient had no recurrence of her symptoms. She was admitted and observed. Telemetry did not show any arrhythmia. Further workup was unremarkable other than carotid Doppler showing 60-70% stenosis of left internal carotid artery. Labs were unremarkable. Echo was pending at this time. It had been done but the report had not been given. Patient was discharged home in stable condition on her outpatient medications except for adding a baby aspirin a day. She will follow up with her PCP next week and we will refer her to vascular surgery [facility]. Status at Discharge Cognitive/behavioral status at discharge: oriented Functional status at discharge: independent ambulation Overall status at discharge: patient is back to baseline Exam Vital Signs (past 8 hours): - 06/07/22 08:00 06/07/22 11:56 Temperature 97.4 F L 97.5 F L Pulse Rate 67 61 Respiratory Rate 16 16 Blood Pressure 135/63 127/51 L Pulse Oximetry 98 96 Oxygen Flow Rate 0 0 Oxygen Delivery Method Room Air Oxygen Flow Rate 0 Narrative Exam Narrative: HEENT is unremarkable Neck supple Chest clear to auscultation without wheezes rhonchi or crackles Cor: Regular rate and rhythm without a murmur Abdomen benign Extremities no edema, pulses intact Neurologic exam nonfocal Objective Labs Result Diagrams: 06/07/22 06:10 06/07/22 06:10 Labs: Laboratory Results - last 24 hr 06/06/22 06/06/22 06/06/22 16:18 16:18 20:08 WBC 5.5 RBC 5.06 Hgb 14.5 Hct 42.4 MCV 83.8 MCH 28.6 MCHC 34.2 RDW 15.1 H Plt Count 263 Neut % (Auto) 71.9 Lymph % (Auto) 12.2 L Ness % (Auto) 12.2 Eos % (Auto) 2.6 Baso % (Auto) 1.1 Neut # (Auto) 4000 Lymph # (Auto) 700 L Ness # (Auto) 700 Eos # (Auto) 100 Baso # (Auto) 100 Sodium 139 Potassium 3.3 L Chloride 100 Carbon Dioxide 34 H BUN 13 Creatinine 0.71 Estimated GFR > 60 BUN/Creatinine Ratio 18.3 Glucose 92 Calcium 8.5 Total Bilirubin 0.9 AST 27 ALT 15 Alkaline Phosphatase 104 Total Protein 7.3 Albumin 4.1 Globulin 3.2 Albumin/Globulin Ratio 1.3 SARS-CoV-2 (PCR) Negative 06/07/22 06/07/22 06:10 06:10 WBC 5.5 RBC 4.83 Hgb 13.7 Hct 40.7 MCV 84.3 MCH 28.3 MCHC 33.6 RDW 14.9 H Plt Count 238 Neut % (Auto) 70.3 Lymph % (Auto) 12.2 L Ness % (Auto) 13.1 Eos % (Auto) 3.7 Baso % (Auto) 0.7 Neut # (Auto) 3900 Lymph # (Auto) 700 L Ness # (Auto) 700 Eos # (Auto) 200 Baso # (Auto) 0 Sodium 137 Potassium 3.3 L Chloride 101 Carbon Dioxide 31 BUN 14 Creatinine 0.72 Estimated GFR > 60 BUN/Creatinine Ratio 19.4 Glucose 93 Calcium 8.3 L Total Bilirubin 1.0 AST 24 ALT 13 Alkaline Phosphatase 92 Total Protein 6.3 Albumin 3.5 Globulin 2.8 Albumin/Globulin Ratio 1.3 SARS-CoV-2 (PCR) PFSH Surgical History (Updated 03/19/18 @ 05:21 by Conversion Provider) Status post cholecystectomy Family History (Updated 04/11/15 @ 00:00 by Conversion Provider) Brother Age: 69 Hypertension Father Heart disease High cholesterol Stroke Grandfather Stroke Mother Cancer Social History household members: spouse Smoking Status: Never smoker alcohol intake: current Discharge Assessment & Plan Assessment and Plan Assessment: Assessment 1. TIA. Reviewed workup including CT of her head, CT angiogram of the neck and head, MRI stroke protocol, revealing 60-70% stenosis on the left internal carotid on the CT angiogram of the neck but normal Doppler of the neck and reviewed this with radiologist as well. Remainder of evaluation was unremarkable other than possible left-sided sinus disease. Showed some inflammation of her sinuses. No obvious evidence of infection but this may warrant need for review with ENT. Her echo is still pending. Plan: Will discharge to home. Will continue with same antihypertensives. We will add baby aspirin. We will continue on a tore vastatin. Her lipids from April were at goal. She will follow-up with her primary care provider next week. Will refer to [facility] at that time for evaluation and follow-up of her left carotid stenosis in the inconclusive results. Likely they will follow. We will continue with risk reduction with antihypertensives and atorvastatin. We may want to push the dose further. At this point patient was to hold off. She understands that the left-sided stenosis would unlikely account for her symptoms however is still warrants further workup. She understands again in immediately she should she have recurrence Assessment 2. Hypertension, appears well-controlled Plan: Will discharge home on baby aspirin, hydrochlorothiazide and metoprolol. May want to take her off the hydrochlorothiazide due to her hypokalemia may be want to put her on an Edu or an Arb. I will leave this up to her primary care provider. Assessment 3. Hyperlipidemia Plan: Continue atorvastatin as outpatient Assessment 4. Hypothyroidism Plan: Continue with same outpatient thyroid medication. Discharge Plan Discharge Plan Patient Disposition: Home Discharge orders & Medications Prescriptions: New aspirin 81 mg capsule 81 mg PO DAILY Qty: 30 11RF Continued atorvastatin [Lipitor] 10 MG tablet 10 mg PO HS Qty: 90 3RF potassium chloride [Klor-Con 10] 10 MEQ tablet extended release 10 meq PO TIDCC Qty: 270 3RF levothyroxine 88 MCG tablet 0.088 mg PO QAM Qty: 90 3RF metoprolol tartrate 50 MG tablet 50 mg PO QDAY Qty: 90 3RF hydrochlorothiazide 25 MG tablet 25 mg OR QDAY Qty: 90 3RF B12 1 tab PO DAILY Follow up/Referrals: Radha Garrido ARNP [Primary Care Provider] - Discharge Health Status Multidrug resistant organism: No MDRO Diet/Activity/Treatments Diet: Diet as Tolerated and Low-sodium Discharge Data Primary Care Provider: Radha Garrido Attending Provider: Juliana Julian VTE Deep Vein Thrombosis/Pulmonary Embolism Present on Admission: No
--- NOTE | 2022-06-07 14:38 | PC.NURSE ---
Addendum entered by Paulette Gaona R.N. 06/07/22 14:45: Tele & HL discontinued intact. Home instructions given Pt Escorted by staff via w/c to waiting vehicle D/C in stable condition. Original Note: Pt denies any discomfort, Tele NSR per ICU staff. Had MRI, & US MD in to see, D/C orders received.
== END 2022-06-07 14:45 | disposition home or self-care (01) ==
LOC: ED 19:41 → AC 19:52
PROVIDERS: Family Medicine Addiction Medicine; Admitting Provider Family Medicine; Emergency Provider Emergency Medicine; PCP Internal Medicine; Referring Provider Emergency Medicine; Visit Provider Family Medicine
DX: G45.9 Transient cerebral ischemic attack, unspecified (principal); I65.22 Occlusion and stenosis of left carotid artery; I08.0 Rheumatic disorders of both mitral and aortic valves; E87.6 Hypokalemia; I10 Essential (primary) hypertension; E78.5 Hyperlipidemia, unspecified; E03.9 Hypothyroidism, unspecified; G47.33 Obstructive sleep apnea (adult) (pediatric); Z20.822 Contact with and (suspected) exposure to COVID-19
CPT/HCPCS: 36415; 70496; 70498; 70551; 80053; 85025; 87635; 93005; 93010; 93306; 93880; 99284; C9803; G0378; Q9967

== ENCOUNTER → 2022-12-29 10:15 | Outpatient (CLI) | payer MEDICARE, SELFPAY ==
[2022-06-06 20:42] VITALS: BMI 27.0
--- NOTE | 2022-12-29 20:12 | DI.NM.S_ITS ---
DATE OF SERVICE: 12/29/2022 PROCEDURE: Exercise perfusion study. INDICATION: Ventricular tachycardia, atherosclerotic vascular disease, hypertension. RADIOPHARMACEUTICAL: 25.2 millicurie technetium-99m Myoview IV was injected at stress and 12.5 millicurie technetium-99m Myoview IV was injected at rest. CARDIAC STRESS: The patient underwent exercise perfusion study under the supervision of an attending staff using Chang protocol. She walked on Chang protocol for 4 minutes and 18 seconds, achieved 101 percent of target heart rate. Maximum heart rate was 144 beats per minute. Resting blood pressure 160/80 and peak blood pressure 180/88 mmHg. AKIL positive 37 percent. Achieved 5.6 METs of workload. Baseline rhythm was sinus with some repolarization changes and some isolated PACs. During stress, the patient developed up to [address] depression in leads V4 to V6 at around 1-1.[address] depression in inferior leads. She also developed chest tightness, which got resolved in 6 minutes in recovery. EKG changes reverted back to baseline in 4-6 minutes. RAW DATA: Breast shadow was seen. GATED STUDY: Resting LV ejection fraction 90 and stress LV ejection fraction 94 percent without any significant wall motion abnormalities. Resting end- diastolic volume 63 mL. TID ratio 1.0, which is within normal limits. Lung/heart ratio 0.22, which is within normal limits. MYOCARDIAL PERFUSION SCAN: Stress supine, resting supine and stress prone images were compared to each other. Resting supine images revealed normal myocardial perfusion. During stress, there is mild to moderate size, mild to moderately decreased perfusion of mid to distal anterior wall extending into the anteroapex. Summed resting score is 0 and summed stress score is 12. 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 The patient has anginal discomfort during exercise, which lasted up to 6 minutes in recovery. Also, had ischemic electrocardiographic changes, which lasted about 4-6 minutes in recovery. Overall, left ventricular function is preserved. No transient ischemic dilatation. The patient had a perfusion study in August,, at that time she had normal myocardial perfusion. I reported the finding to Dr. Al Contreras. Consider left heart catheterization. Gilma Watts MASSAGE COORDINATOR/fn/michela doc#: [id number]/job#: [id number] dd: 12/29/2022 16:52:00 dt: 12/29/2022 19:51:00 DICTATING MD/COPIES TO: Dalila Keys MD COPIES MNE: [facility];
== END ==
PROVIDERS: PCP Internal Medicine; Referring Provider Internal Medicine Cardiovascular Disease; Visit Provider Internal Medicine Cardiovascular Disease
DX: I47.29 Other ventricular tachycardia (principal); R94.39 Abnormal result of other cardiovascular function study
CPT/HCPCS: 78452; 93017; A9502

== ENCOUNTER 2023-01-26 11:12 | Emergency (ER) | payer MEDICARE, SELFPAY ==
[2022-06-06 20:42] VITALS: BMI 27.0
[2023-01-26] VITALS (15 sets, daily range): BP systolic 107–144; BP diastolic 54–71; PULSE 54–66; RESP 14–26; TEMP 36.3; O2SAT 91–97; BMI 27.4
--- NOTE | 2023-01-26 11:27 | DI.RAD.S_ITS ---
PROCEDURE: XR CHEST 1V INDICATIONS: chest pain TECHNIQUE: One view of the chest was acquired. COMPARISON: [facility], CHEST 1 VIEW, 08/04/2016, 8:49. [facility], CHEST 1 VIEW, 03/12/2012, 20:06. FINDINGS: Surgical changes and devices: None. Lungs and pleura: Lungs are clear. No pleural effusions or pneumothorax. Mediastinum: Mediastinal contours appear normal. Heart size is normal. Bones and chest wall: No suspicious bony lesions. Overlying soft tissues appear unremarkable. IMPRESSION: No acute cardiopulmonary process. Dictated by: Sherman Lockett M.D. on 01/26/2023 at 12:15 Approved by: Sherman Lockett M.D. on 01/26/2023 at 12:16
--- NOTE | 2023-01-26 11:33 | ED.CHESTPAIN ---
HPI - Chest Pain General Chief Complaint: Chest Pain Stated Complaint: pain in heart/arm & hand pain/lightheaded Time Seen by Provider: 01/26/23 11:23 History of Present Illness HPI narrative: Patient 77-year-old female history of coronary artery disease, valvular disease, hypertension hyperlipidemia hypothyroid, presenting today with chest discomfort. She reports that she was looking at her iPad this morning she had some chest discomfort between a dull ache and sharp stabbing pain radiating to her back her left arm. She took 2 nitroglycerins and came to the emergency department. She reports that she had a TIA last May she has since had a series of tests she was sent to a unit assembler she had a Holter monitor she eventually had a stress test which led her to a heart catheterization last week at [facility]. Was found that she has multiple arteries with disease it was recommended that she have CABG and valve replacement however the details of this procedure have yet to be set up or determined. She reports that she took 181 mg aspirin prior to arrival this morning as well. First Assistant is Dr. Johnston at [facility] Related Data Home Medications Medication Instructions Recorded Confirmed B12 1 tab PO DAILY 06/06/22 10/30/22 Previous Rx's Medication Instructions Recorded atorvastatin 10 mg tablet (Lipitor) 10 mg PO HS #90 tabs 02/04/18 levothyroxine 88 mcg tablet 0.088 mg PO QAM #90 tabs 02/04/18 metoprolol tartrate 50 mg tablet 50 mg PO QDAY #90 tabs 02/04/18 potassium chloride 10 mEq 10 meq PO TIDCC #270 tabs 02/04/18 tablet,extended release (Klor-Con) aspirin 81 mg capsule 81 mg PO DAILY #30 caps 06/07/22 isosorbide mononitrate 30 mg 30 mg PO DAILY #30 tabs 01/26/23 tablet,extended release 24 hr Allergies Allergy/AdvReac Type Severity Reaction Status Date / Time Sulfa (Sulfonamide Allergy Mild RASH Verified 01/26/23 11:33 Antibiotics) tetracycline AdvReac Mild HYPOTENSION Verified 01/26/23 11:33 Review of Systems Review of Systems ROS Unobtainable: All systems reviewed & are unremarkable except as noted in HPI and below Patient History Surgical History Status post cholecystectomy Family History Brother Age: 69 Hypertension Father Heart disease High cholesterol Stroke Grandfather Stroke Mother Cancer Social History household members: spouse Smoking Status: Never smoker alcohol intake: current Smoking Status: Never smoker alcohol intake frequency: holidays/special occasions only Substance Use Type: does not use Exam Initial Vital Signs Initial Vital Signs: Vital Signs Pulse Rate 66 01/26/23 11:22 Pulse Oximetry 97 01/26/23 11:22 GENERAL: Alert pleasant 77-year-old female and in no acute distress. HEENT: Head atraumatic,EOMI, pupils reactive, face symmetric, moist mucous membranes CARDIOVASCULAR: Regular rate and rhythm without murmurs, rubs or gallops. RESPIRATORY: Breath sounds equal bilaterally, no wheezes rales or rhonchi. ABDOMEN: Soft, nontender. Normoactive bowel sounds all 4 quadrants. No guarding or rebound. EXTREMITIES: Normal range of motion, no clubbing or edema. Neurovascularly intact NEUROLOGICAL: Alert and oriented x4.Normal gait and speech. Cranial nerves II through XII grossly intact. SKIN: Warm, dry, no laceration, no petechiae, no rashes or lesions. Course Orders Ordered: ED Orders 01/26/23 11:27 XR chest 1V Stat 01/26/23 11:45 Complete Blood Count AUTO DIFF Stat Comprehensive Metabolic Panel Stat Lipase Stat Magnesium Stat PTT Partial Thromboplastin Best Stat Prothrombin Time INR Stat Troponin & CK Cardiac Panel Stat 01/26/23 12:20 COVID19 -Nasal RAPID Stat 01/26/23 14:10 Troponin & CK Cardiac Panel Stat Discontinued Medications Aspirin (Aspirin 81 Mg Chew Tab) 324 mg PO NOW ONE Stop: 01/26/23 11:28 Last Admin: 01/26/23 12:12 Dose: Not Given Documented By: RB Aspirin (Aspirin 81 Mg Chew Tab) 324 mg PO NOW ONE Stop: 01/26/23 11:35 Last Admin: 01/26/23 12:12 Dose: Not Given Documented By: RB Aspirin (Aspirin 81 Mg Chew Tab) 243 mg PO NOW ONE Stop: 01/26/23 12:13 Last Admin: 01/26/23 12:16 Dose: 243 mg Documented By: RB Vital Signs Vital signs: Vital Signs - 8 hr 01/26/23 12:00 01/26/23 12:00 01/26/23 12:30 Pulse Rate 58 L Respiratory Rate Blood Pressure 114/56 L 126/56 L Pulse Oximetry Oxygen Delivery Method 01/26/23 12:30 01/26/23 13:00 01/26/23 13:00 Pulse Rate 59 L 55 L Respiratory Rate 26 H 19 Blood Pressure 107/54 L Pulse Oximetry 94 91 Oxygen Delivery Method 01/26/23 13:30 01/26/23 13:31 01/26/23 13:31 Pulse Rate 56 L 54 L Respiratory Rate 23 23 Blood Pressure 135/58 L Pulse Oximetry 94 94 Oxygen Delivery Method 01/26/23 14:00 01/26/23 14:00 01/26/23 14:33 Pulse Rate 57 L Respiratory Rate 19 Blood Pressure 125/61 136/64 Pulse Oximetry 95 Oxygen Delivery Method 01/26/23 14:33 01/26/23 15:00 01/26/23 15:01 Pulse Rate 61 61 Respiratory Rate 14 18 Blood Pressure 126/62 Pulse Oximetry 96 94 Oxygen Delivery Method 01/26/23 15:01 01/26/23 15:30 01/26/23 15:31 Pulse Rate 62 62 Respiratory Rate 17 Blood Pressure 115/61 Pulse Oximetry 92 Oxygen Delivery Method 01/26/23 15:31 01/26/23 16:00 01/26/23 16:00 Pulse Rate 63 61 Respiratory Rate 19 20 Blood Pressure 109/56 L Pulse Oximetry 94 Oxygen Delivery Method Room Air MDM - Chest Pain Lab Data 01/26/23 11:45 01/26/23 11:45 Labs: Lab Results 01/26/23 01/26/23 01/26/23 Range/Units 11:45 11:45 11:45 WBC 5.2 (4.5-11.0) X10^3/uL RBC 4.93 (4.0-5.2) X10^6/uL Hgb 13.7 (12.0-16.0) g/dL Hct 41.7 (36-46) % MCV 84.5 (80-100) fL MCH 27.8 (26-34) PG MCHC 32.9 (30-36) % RDW 14.7 (11.6-14.8) % Plt Count 247 (150-400) X10^3/uL Neut % (Auto) 71.6 (50-75) % Lymph % (Auto) 13.0 L (25-40) % Weld % (Auto) 10.9 (3-14) % Eos % (Auto) 3.7 (2-4) % Baso % (Auto) 0.8 (0-2) % Neut # (Auto) 3700 (3183-2731) /uL Lymph # (Auto) 700 L (8946-0174) /uL Weld # (Auto) 600 (0-900) /uL Eos # (Auto) 200 (0-450) /uL Baso # (Auto) 0 (0-100) /uL PT 13.2 H (10.1-12.7) SECONDS INR 1.2 (0.9-1.3) APTT 61 H (26-36) SECONDS Sodium 137 (137-145) mmol/L Potassium 4.1 (3.4-5.1) mmol/L Chloride 102 (98-107) mmol/L Carbon Dioxide 28 (22-32) mmol/L BUN 22 H (7-17) mg/dL Creatinine 0.75 (0.52-1.04) mg/dL Estimated GFR > 60 (>60) mL/min BUN/Creatinine Ratio 29.3 H (6-22) Glucose 121 H (80-110) mg/dL Calcium 8.2 L (8.4-10.2) mg/dL Magnesium 1.9 (1.6-2.3) mg/dL Total Bilirubin 1.0 (0.2-1.3) mg/dL AST 22 (14-36) IU/L ALT 16 (<35) IU/L Alkaline Phosphatase 96 (38-126) U/L Total Creatine Kinase 42 (30-135) U/L CK-MB (CK-2) TNP CK-MB (CK-2) Rel Index TNP Troponin I < 0.012 (0.01-0.034) ng/mL Total Protein 6.7 (6.3-8.2) g/dL Albumin 3.7 (3.5-5.0) g/dL Globulin 3.0 (1.7-4.1) g/dL Albumin/Globulin Ratio 1.2 (1.0-2.8) Lipase 77 (23-300) U/L SARS-CoV-2 (PCR) (Negative) 01/26/23 01/26/23 Range/Units 12:20 14:10 WBC (4.5-11.0) X10^3/uL RBC (4.0-5.2) X10^6/uL Hgb (12.0-16.0) g/dL Hct (36-46) % MCV (80-100) fL MCH (26-34) PG MCHC (30-36) % RDW (11.6-14.8) % Plt Count (150-400) X10^3/uL Neut % (Auto) (50-75) % Lymph % (Auto) (25-40) % Weld % (Auto) (3-14) % Eos % (Auto) (2-4) % Baso % (Auto) (0-2) % Neut # (Auto) (7297-4965) /uL Lymph # (Auto) (4364-1674) /uL Weld # (Auto) (0-900) /uL Eos # (Auto) (0-450) /uL Baso # (Auto) (0-100) /uL PT (10.1-12.7) SECONDS INR (0.9-1.3) APTT (26-36) SECONDS Sodium (137-145) mmol/L Potassium (3.4-5.1) mmol/L Chloride (98-107) mmol/L Carbon Dioxide (22-32) mmol/L BUN (7-17) mg/dL Creatinine (0.52-1.04) mg/dL Estimated GFR (>60) mL/min BUN/Creatinine Ratio (6-22) Glucose (80-110) mg/dL Calcium (8.4-10.2) mg/dL Magnesium (1.6-2.3) mg/dL Total Bilirubin (0.2-1.3) mg/dL AST (14-36) IU/L ALT (<35) IU/L Alkaline Phosphatase (38-126) U/L Total Creatine Kinase 62 (30-135) U/L CK-MB (CK-2) TNP CK-MB (CK-2) Rel Index TNP Troponin I 0.017 (0.01-0.034) ng/mL Total Protein (6.3-8.2) g/dL Albumin (3.5-5.0) g/dL Globulin (1.7-4.1) g/dL Albumin/Globulin Ratio (1.0-2.8) Lipase (23-300) U/L SARS-CoV-2 (PCR) Negative (Negative) Imaging Data Chest x-ray: Radiologist's Impression: PROCEDURE:? XR CHEST 1V ? INDICATIONS:? chest pain ? TECHNIQUE:? One view of the chest was acquired.? ? COMPARISON:? [facility], CHEST 1 VIEW, 08/04/2016, 8:49.? [facility], CHEST 1 VIEW, 03/12/2012, 20:06. ? FINDINGS:? ? Surgical changes and devices:? None.? ? Lungs and pleura:? Lungs are clear.? No pleural effusions or pneumothorax.? ? Mediastinum:? Mediastinal contours appear normal.? Heart size is normal.? ? Bones and chest wall:? No suspicious bony lesions.? Overlying soft tissues appear unremarkable.? ? IMPRESSION:? No acute cardiopulmonary process.? ? ? Dictated by: Sherman Lockett M.D. on 01/26/2023 at 12:15 ECG Data Interpretation: Sinus rhythm rate 62 OR interval 194 QRS 82 QTC 420 or no significant changes from EKG 06/06/2022 fact partially improved MDM Narrative Medical decision making narrative: Patient is a 77-year-old female who has known coronary artery disease presenting today with chest discomfort radiating to her left arm she took 2 nitroglycerin home and has been chest pain-free in the emergency department. Blood work is overall reassuring 2- troponins EKGs do not show any signs of ischemia. Chest x-ray also does not show any abnormality. I have called and spoken to Dr. Wise Cardiology, she has reviewed patient's chart updated on patient's symptoms test results. At this time she recommends stopping Aldactone and starting Imdur 30 mg daily. She also requests no strenuous activity and to follow-up with Cardiology with at least 6 days Discharge Plan Departure Patient Disposition: Home Clinical Impression: Angina at rest Instructions: DI for Angina Activity Restrictions/Additional Instructions: *You have been diagnosed with angina *What to do: At this time I spoke with Cardiology at [facility]. Recommended changing her medications. *Continue to take medications as directed Stop taking Aldactone/spironolactone Start taking Imdur 30 mg once daily--> SENT TO [facility] *Follow up with your primary care provider in 2-3 days or call [phone] *Return to ER if you should have increasing chest pain palpitations dizziness lightheadedness passing out or any new, worsening or concerning symptoms Prescriptions: New isosorbide mononitrate 30 mg tablet extended release 24 hr 30 mg PO DAILY Qty: 30 0RF No Action atorvastatin [Lipitor] 10 MG tablet 10 mg PO HS Qty: 90 3RF potassium chloride [Klor-Con 10] 10 MEQ tablet extended release 10 meq PO TIDCC Qty: 270 3RF levothyroxine 88 MCG tablet 0.088 mg PO QAM Qty: 90 3RF metoprolol tartrate 50 MG tablet 50 mg PO QDAY Qty: 90 3RF B12 1 tab PO DAILY aspirin 81 mg capsule 81 mg PO DAILY Qty: 30 11RF Referrals: Al Contreras MD [Non-Staff] - Radha Garrido ARNP [Primary Care Provider] - Stand Alone Forms: Patient Portal/API
[2023-01-26 11:57] LABS: Add Manual Diff / Slide Review NO; Basophils Absolute Auto 0 /uL (0-100); Basophils Percent Auto 0.8 % (0-2); Eosinophils Absolute Auto 200 /uL (0-450); Eosinophils Percent Auto 3.7 % (2-4); Hematocrit 41.7 % (36-46); Hemoglobin 13.7 g/dL (12.0-16.0); Lymphocytes Absolute Auto 700 /uL (1100-4500); Mean Corpuscular HGB Conc 32.9 % (30-36); Mean Corpuscular Hemoglobin 27.8 PG (26-34); Mean Corpuscular Volume 84.5 fL (80-100); Monocytes Absolute Auto 600 /uL (0-900); Monocytes Percent Auto 10.9 % (3-14); Neutrophils Absolute Auto 3700 /uL (1500-7000); Neutrophils Percent Auto 71.6 % (50-75); Platelet Count 247 X10^3/uL (150-400); Red Blood Cell Count 4.93 X10^6/uL (4.0-5.2); Red Cell Distribution Width 14.7 % (11.6-14.8); White Blood Cell Count 5.2 X10^3/uL (4.5-11.0)
[2023-01-26 12:05] LABS: INR 1.2 (0.9-1.3); Prothrombin Time 13.2 SECONDS (10.1-12.7)
[2023-01-26 12:07] LABS: PTT Partial Thromboplastin Tim 61 SECONDS (26-36)
[2023-01-26 12:11] LABS: Alanine Aminotransferase 16 IU/L (<35); Albumin 3.7 g/dL (3.5-5.0); Albumin Globulin Ratio 1.2 (1.0-2.8); Alkaline Phosphatase 96 U/L (38-126); Aspartate Aminotransferase 22 IU/L (14-36); BUN Creatinine Ratio 29.3 (6-22); Blood Urea Nitrogen 22 mg/dL (7-17); Calcium 8.2 mg/dL (8.4-10.2); Carbon Dioxide 28 mmol/L (22-32); Chloride 102 mmol/L (98-107); Creatine Kinase 42 U/L (30-135); Estimated Glomerular Filt Rate > 60 mL/min (>60); Glucose 121 mg/dL (80-110); HEMOLYSIS < 15 (0-50); Lipase 77 U/L (23-300); Magnesium 1.9 mg/dL (1.6-2.3); Potassium 4.1 mmol/L (3.4-5.1); Sodium 137 mmol/L (137-145); Total Protein 6.7 g/dL (6.3-8.2)
--- NOTE | 2023-01-26 12:13 | PC.NURSE ---
Provider ordered 324mg of Aspirin chewable to be given to this patient. Patient reports that she took one baby aspirin at home prior to arrival. This RN informed Dr. Horta who gave verbal order to give 243mg of chewable aspirin instead. Both orders of 324mg aspirin labeled as not given per provider order. New verbal order entered and administered.
[2023-01-26] MEDS: ASPIRIN 81 MG CHEW TAB 243 MG PO (12:16)
[2023-01-26 12:22] LABS: Troponin I < 0.012 ng/mL (0.01-0.034)
[2023-01-26 13:10] LABS: COVID19 -Nasal RAPID Negative (Negative)
[2023-01-26 14:31] LABS: Creatine Kinase 62 U/L (30-135)
[2023-01-26 14:57] LABS: Troponin I 0.017 ng/mL (0.01-0.034)
== END 2023-01-26 16:08 | disposition home or self-care (01) ==
PROVIDERS: Emergency Provider Emergency Medicine; PCP Internal Medicine
DX: I25.118 Atherosclerotic heart disease of native coronary artery with other forms of angina pectoris (principal); Z20.822 Contact with and (suspected) exposure to COVID-19
CPT/HCPCS: 36415; 71045; 80053; 82550; 83690; 83735; 84484; 85025; 85610; 85730; 87635; 93005; 93010; 99284; C9803

== ENCOUNTER → 2023-03-12 10:10 | Outpatient (CLI) | payer MEDICARE, SELFPAY ==
[2022-06-06 20:42] VITALS: BMI 27.0
--- NOTE | 2023-03-12 | DI.RAD.S_ITS ---
PROCEDURE: XR CHEST 2V INDICATIONS: Pleural effusion, not elsewhere classified TECHNIQUE: 2 views of the chest were acquired. COMPARISON: [facility], CR, XR CHEST 1V, 01/26/2023, 11:29. FINDINGS: Surgical changes and devices: Median sternotomy. Lungs and pleura: Lungs are clear. No pleural effusions or pneumothorax. Mediastinum: Mediastinal contours are normal. Heart size is normal. Bones and chest wall: No suspicious bony abnormalities. Soft tissues appear unremarkable. Probable intra-articular loose bodies within the bilateral glenohumeral joints. IMPRESSION: 1. No acute process. No evidence of pleural effusion. Dictated by: Tiffany Cordova M.D. on 03/12/2023 at 13:16 Transcribed by: COLBY on 03/12/2023 at 13:17 Approved by: Tiffany Cordova M.D. on 03/12/2023 at 16:46
== END ==
PROVIDERS: PCP Internal Medicine; Referring Provider Physician Assistant; Visit Provider Physician Assistant
DX: J90 Pleural effusion, not elsewhere classified (principal); Z95.1 Presence of aortocoronary bypass graft
CPT/HCPCS: 71046

== ENCOUNTER 2023-06-21 10:15 | Outpatient (RCR) | payer MEDICARE, SELFPAY ==
[2022-06-06 20:42] VITALS: BMI 27.0
== END 2023-06-21 12:15 ==
LOC: CAR 10:15
PROVIDERS: PCP Internal Medicine; Referring Provider Internal Medicine Cardiovascular Disease; Visit Provider Internal Medicine Cardiovascular Disease
DX: Z95.1 Presence of aortocoronary bypass graft (principal)
CPT/HCPCS: 93798

== ENCOUNTER → 2023-07-14 08:22 | Outpatient (CLI) | payer MEDICARE, SELFPAY ==
[2022-06-06 20:42] VITALS: BMI 27.0
[2023-07-14 09:14] LABS: Cholesterol 150 mg/dL (140-199); HDL Cholesterol 49 mg/dL (40-60); LDL Cholesterol Calculated 83 mg/dL (<100); Triglycerides 88 mg/dL (35-150)
== END ==
PROVIDERS: PCP Internal Medicine; Referring Provider Internal Medicine Cardiovascular Disease; Visit Provider Internal Medicine Cardiovascular Disease
DX: I25.10 Atherosclerotic heart disease of native coronary artery without angina pectoris (principal); I25.84 Coronary atherosclerosis due to calcified coronary lesion; Z86.73 Personal history of transient ischemic attack (TIA), and cerebral infarction without residual deficits
CPT/HCPCS: 36415; 80061

== ENCOUNTER → 2023-08-30 10:12 | Outpatient (CLI) | payer MEDICARE, SELFPAY ==
[2022-06-06 20:42] VITALS: BMI 27.0
--- NOTE | 2023-08-30 | DI.US.S_ITS ---
PROCEDURE: US CAROTID DOPPLER BI INDICATIONS: Occlusion and stenosis of left carotid artery TECHNIQUE: Color and pulse Doppler interrogation was performed of both carotid systems, with image documentation and velocity measurements. COMPARISON: [facility], , CAROTID DOPPLER BI, 06/07/2022, 10:44. FINDINGS: Stenosis calculations are based on SRU (Society of Radiologists in Ultrasound) criteria. Right side: Brachial blood pressure: 119/67 mm Hg. Common carotid artery peak systolic velocity: 83 cm/sec. Internal carotid artery peak systolic velocity: 130 cm/sec. Internal carotid artery end diastolic velocity: 30 cm/sec. External carotid artery peak systolic velocity: 121 cm/sec. ICA/CCA peak systolic ratio: 1.6 Servin scale imaging description: Atherosclerotic plaque Percent internal carotid artery stenosis: Less than 50 . Vertebral artery: Flow direction is antegrade. Left side: Brachial blood pressure: 128/67 mm Hg. Common carotid artery peak systolic velocity: 80 cm/sec. Internal carotid artery peak systolic velocity: 68 cm/sec. Internal carotid artery end diastolic velocity: 13 cm/sec. External carotid artery peak systolic velocity: 159 cm/sec. ICA/CCA peak systolic ratio: 0.9 . Servin scale imaging description: Atherosclerotic plaque Percent internal carotid artery stenosis: Less than 50 . Vertebral artery: Flow direction is antegrade. IMPRESSION: Although grayscale imaging suggests less than 50 percent stenosis in the proximal right ICA, peak systolic velocity is elevated suggesting a 50-69 percent stenosis. Given the discordant findings, consider CT angiogram of the neck for further evaluation. No evidence of hemodynamically significant stenosis in the left proximal ICA Approved by: Tico Person M.D. on 08/30/2023 at 14:22
== END ==
PROVIDERS: PCP Internal Medicine; Referring Provider Internal Medicine Cardiovascular Disease; Visit Provider Internal Medicine Cardiovascular Disease
DX: I25.10 Atherosclerotic heart disease of native coronary artery without angina pectoris (principal); Z86.73 Personal history of transient ischemic attack (TIA), and cerebral infarction without residual deficits; I65.22 Occlusion and stenosis of left carotid artery
CPT/HCPCS: 93880

== ENCOUNTER → 2023-10-15 10:02 | Outpatient (CLI) | payer MEDICARE, SELFPAY ==
[2022-06-06 20:42] VITALS: BMI 27.0
--- NOTE | 2023-10-15 10:05 | DI.CT.S_ITS ---
PROCEDURE: CT ANGIO HEAD AND NECK INDICATIONS: Personal history of transient ischemic attack TECHNIQUE: After the administration of intravenous contrast, 1 mm thick sections acquired from the aortic arch through the [place]. 3-dimensional aicxzcc-dksrntrkw-vveirxmrhm (MIP) and/or volume rendering reformats were acquired of the central intracranial vasculature and neck separately. For radiation dose reduction, the following was used: automated exposure control, adjustment of mA and/or kV according to patient size. COMPARISON: [facility], CT, CT ANGIO HEAD AND NECK, 06/06/2022, 16:55. FINDINGS: Image quality: Diagnostic. BRAIN: CSF spaces: Ventricles are normal in size and shape. Basal cisterns are patent. No extra-axial fluid collections. Brain: No significant abnormality of the brain can be seen. Skull and face: Calvarium and facial bones appear intact, without suspicious lesions. Orbits appear normal. Sinuses: Sinuses and mastoids are clear. HEAD CT ANGIOGRAPHY: Anterior circulation: The intracranial internal carotid arteries have atherosclerotic calcifications with up to 50% stenosis bilaterally. The flow within the paired anterior cerebral arteries is normal and symmetric. The flow within the middle cerebral arteries is normal and symmetric. The anterior communicating artery is seen. No aneurysms are seen. Posterior circulation: Visualized portions of the vertebral arteries demonstrate normal caliber, and join to form a normal appearing basilar artery. Flow within the posterior cerebral arteries is normal and symmetric. No aneurysms are seen. NECK CT ANGIOGRAPHY: Carotid system: The great vessels demonstrate a conventional anatomy as they arise from the aortic arch. The origins of the common carotid arteries appear patent. The common carotid arteries demonstrate normal caliber and courses. The bifurcation regions bilaterally have atherosclerotic calcifications worse on the right causing approximately 50% stenosis in the bulb, however by NASCET criteria (comparing diameter to the outflow vessel diameter) this is not appear significant. The internal carotid arteries demonstrate normal calibers and courses. Posterior circulation: The origins of the vertebral arteries both appear widely patent. The more superior extracranial portions of both vertebral arteries also demonstrate normal courses and calibers. They join to form a normal appearing basilar artery. Soft tissues: Visualized neck soft tissues demonstrate no suspicious abnormalities. Bones: No suspicious bony lesions. Visualized cervical spine appears normally aligned. IMPRESSION: 1. No acute intracranial abnormality. 2. No significant stenosis in either carotid bulb by NASCET criteria. Any quantitative measurements of stenosis were performed using NASCET criteria. Dictated by: Narendra Lo M.D. on 10/15/2023 at 11:36 Approved by: Narendra Lo M.D. on 10/15/2023 at 11:47
[2023-10-15 10:37] LABS: Estimated Glomerular Filt Rate > 60 mL/min (>60)
== END ==
PROVIDERS: Radiology Diagnostic Radiology; PCP Internal Medicine; Referring Provider Internal Medicine Cardiovascular Disease; Visit Provider Internal Medicine Cardiovascular Disease
DX: Z86.73 Personal history of transient ischemic attack (TIA), and cerebral infarction without residual deficits (principal); R42 Dizziness and giddiness
CPT/HCPCS: 36415; 70496; 70498; 82565; Q9967

== ENCOUNTER → 2024-04-17 06:47 | Outpatient (CLI) | payer MEDICARE, SELFPAY ==
[2022-06-06 20:42] VITALS: BMI 27.0
[2024-04-17 08:36] LABS: Cholesterol 166 mg/dL (140-199); HDL Cholesterol 62 mg/dL (40-60); LDL Cholesterol Calculated 86 mg/dL (<100); Triglycerides 89 mg/dL (35-150)
== END ==
PROVIDERS: PCP Internal Medicine; Referring Provider Internal Medicine Cardiovascular Disease; Visit Provider Internal Medicine Cardiovascular Disease
DX: I34.0 Nonrheumatic mitral (valve) insufficiency (principal); I47.29 Other ventricular tachycardia; I25.10 Atherosclerotic heart disease of native coronary artery without angina pectoris; I25.84 Coronary atherosclerosis due to calcified coronary lesion
CPT/HCPCS: 36415; 80061

== ENCOUNTER → 2024-10-29 08:51 | Outpatient (CLI) | payer MEDICARE, SELFPAY ==
[2022-06-06 20:42] VITALS: BMI 27.0
[2024-10-29 10:52] LABS: Cholesterol 166 mg/dL (140-199); HDL Cholesterol 61 mg/dL (40-60); LDL Cholesterol Calculated 85 mg/dL (<100); Triglycerides 99 mg/dL (35-150)
== END ==
PROVIDERS: PCP Internal Medicine; Referring Provider Internal Medicine Cardiovascular Disease; Visit Provider Internal Medicine Cardiovascular Disease
DX: I25.10 Atherosclerotic heart disease of native coronary artery without angina pectoris (principal); I25.84 Coronary atherosclerosis due to calcified coronary lesion; E78.5 Hyperlipidemia, unspecified
CPT/HCPCS: 36415; 80061